=== PATIENT | female | born 1930 | race Caucasian/White ===

== ENCOUNTER 2016-10-05 16:41 | Inpatient (IN) ==
[2016-10-05] MEDS ORDERED: ACETAMINOPHEN 325 MG TABLET PO PRN (19:04)
[2016-10-05] MEDS ORDERED: ZALEPLON 5 MG CAPSULE PO PRN (19:04)
[2016-10-05] MEDS ORDERED: NITROGLYCERIN SL 0.4 MG TABLET SL PRN (19:06)
--- NOTE | 2016-10-05 19:15 | Cardiology History & Physical ---
Assessment and Plan - Time spent with patient Time spent with patient: Greater than 30 minutes (Chart review film review examination and order) (1) Near syncope Status: Acute Current Visit: Yes (2) CAD (coronary artery disease) Status: Acute Current Visit: No (3) Carotid bruit Problem details: Benign per ultrasound Status: Acute Current Visit: No (4) Murmur, cardiac Status: Acute Current Visit: No (5) Essential hypertension Status: Chronic Current Visit: No History of Present Illness Chief complaint: Near syncope History of present illness: Ms. Aquino is a 86 year old female with history of palpitations and near syncope as well as coronary artery disease mitral regurgitation pulmonary hypertension. 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 She did not pass out but she told her children and they no longer letter drive insists that she go to the emergency room she was evaluated in the emergency room at [facility] she was everything was "negative" (waiting for those records to be scanned in the EHR). The patient was having multifocal PVCs that were frequent and she simply was referred here for admission. The ED physicians discussed with Dr. Fletcher. 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 Her blood pressure is elevated and she is completely asymptomatic at this time her daughter was with her. I reviewed her films and old records. Home Medications Medication Instructions Recorded Confirmed Type amLODIPine [Norvasc] 10 mg PO DAILY 02/23/15 10/05/16 History Aspirin Tab 325 mg PO DAILY #30 tablet 02/25/15 10/05/16 Rx Atorvastatin [Lipitor] 40 mg PO BEDTIME #30 tablet 02/25/15 10/05/16 Rx Clopidogrel [Plavix] 75 mg PO DAILY #30 tablet 02/25/15 10/05/16 Rx Nitroglycerin Sl Tab [Nitrostat] 0.4 mg SL Q5M PRN #1 bottle 02/25/15 10/05/16 Rx Carvedilol [Carvedilol] 6.25 mg PO BID 10/05/16 10/05/16 History Allergies Allergy/AdvReac Type Severity Reaction Status Date / Time No Known Allergies Allergy Unverified 02/23/15 13:16 - Constitutional Constitutional: Absent: anorexia, chills, night sweats, stops breathing during sleep - EENT Eyes: Absent: blurry vision, diplopia Ears: Absent: decreased hearing Nose, mouth and throat: Absent: dysphagia, epistaxis, lip swelling - Cardiovascular Cardiovascular: Present: dyspnea. Absent: chest pain at rest, claudication, diaphoresis, dyspnea on exertion, edema - Respiratory Respiratory: Present: dyspnea, dyspnea on exertion - Gastrointestinal Gastrointestinal: Present: abdominal pain. Absent: constipation - Genitourinary Genitourinary: Absent: flank pain - Musculoskeletal Musculoskeletal: Present: arthralgias. Absent: joint swelling - Neurological Neurological: Absent: abnormal gait - Psychiatric Psychiatric: Absent: anxiety, depression - Endocrine Endocrine: Absent: cold intolerance, heat intolerance - Hematologic/Lymphatic Hematologic/Lymphatic: Absent: easy bleeding, easy bruising Medical,Surgical,& Family Hx - Medical History Cardio: History of: Cardiac Dysrhythmia, CAD (BMS is RCA andLCx 02/23/15), Hypertension, NM, Valvular Heart Disease Rheumatology: History of;: Rheumatoid Arthritis Respiratory: History of: Respiratory Problems (Pulmonary hypertension) Musculoskeletal: No history of: Amputation - Surgical History Cardiac Surgeries: Patient Denies: Cardiac Catheterization Thoracic Surgeries: Patient denies;: Lobectomy HEENT Surgeries: Surgical HX of: Tonsilectomy & Adenoidectomy - Family History Family History: Reports;: Family Cancer (MOTHER-BREAST CA SISTER-LUEKIMIA), Family Diabetes (SISTER), Family Heart Disease (MOTHER, SISTERS), Family Hypertension (SISTER) - Social History Smoking Status: Never smoker Frequency of Alcohol Use: None Type of Drug Use: None Marital Status: Lives With:: Alone Functional capacity: independent ambulation Cardiology Physical Exam - Constitutional Vitals: Vital Signs Temp Pulse Resp BP Pulse Ox 99.1 F 72 18 171/112 100 10/05/16 18:13 10/05/16 18:13 10/05/16 18:13 10/05/16 18:13 10/05/16 18:13 Intake and Output 10/05/16 10/05/16 10/05/16 07:59 15:59 23:59 Other: Weight 65 kg Patient Weight 10/05/16 23:59 Weight 65 kg General appearance: under weight - Head Head exam: Present: normal inspection - Eye Eye exam: Present: EOMI Pupils: Present: JACOBY - ENT ENT exam: Present: normal exam - Neck Neck exam: Present: normal inspection - Respiratory Respiratory exam: Present: clear to auscultation bilaterally - Cardiovascular Cardiovascular exam: Present: regular rate and rhythm (Murmur of tricuspid regurgitation and mitral regurgitation also soft murmur of aortic sclerosis with a preserved second heart) - GI/Abdominal GI/Abdominal exam: Present: normal bowel sounds - Extremities Exam Extremities exam: Present: normal inspection - Back Exam Back exam: Present: normal inspection - Neurological Exam Neurological exam: Present: alert, oriented X3 - Psychiatric Psychiatric exam: Present: normal affect, normal mood - Skin Skin exam: Present: normal color, warm
[2016-10-05] MEDS: hydrALAZINE 20 MG/1 ML VIAL IV PRN (19:58)
[2016-10-05] MEDS: SODIUM CHLORIDE 0.9% 1,000 ML IV SCH (20:03)
[2016-10-05] MEDS: ATORVASTATIN 40 MG TABLET PO SCH (20:06)
[2016-10-05 20:50] LABS: Albumin 3.8 G/DL (3.4-5.0); Bilirubin,Direct 0.2 MG/DL (0.0-0.20); Bilirubin,Indirect 0.3 MG/DL (0.0-1.0); Bilirubin,Total 0.5 MG/DL (0.2-1.0); Total Protein 6.7 G/DL (6.4-8.3)
[2016-10-05] MEDS ORDERED: CARVEDILOL 6.25 MG TABLET PO SCH (21:00)
[2016-10-06] MEDS: hydrALAZINE 20 MG/1 ML VIAL IV PRN (02:27)
[2016-10-06] MEDS ORDERED: ATROPINE 1 MG/10 ML SYRINGE IV ONE (02:48)
[2016-10-06 02:49] LABS: Basophils # 0.1 10*3/uL (0.0-0.2); Basophils % 0.7 % (0.0-0.8); Eosinophils # 0.4 10*3/uL (0.0-0.87); Eosinophils % 2.3 % (0.00-10.9); Hematocrit 50.2 VOL% (35.7-47.0); Hemoglobin 16.4 GM/DL (12.0-16.0); Immature Granulocytes % 0.5 %; Lymphocytes # 3.3 10*3/uL (1.4-4.0); Lymphocytes % 17.2 % (21.3-54.2); Mean Corpuscular HGB Conc 32.7 GM/DL (32-36); Mean Corpuscular Hemoglobin 31 PG (27-34); Mean Corpuscular Volume 95.6 FL (87-102); Mean Platelet Volume 11.4 FL (9.6-12.0); Monocytes # 0.6 10*3/uL (0.11-0.8); Monocytes % 3.2 % (1.7-12.7); Neutrophils # 14.6 10*3/uL (1.4-7.4); Neutrophils % 76.1 % (38.7-73.9); Platelet Count 380 T/CUMM (130-400); Red Blood Count 5.25 MC/CUMM (3.8-5.5); Red Cell Distribution Width 14.4 % (9.3-17.3); White Blood Count 19.1 T/CUMM (4-12)
--- NOTE | 2016-10-06 03:17 | Event Note ---
I saw the patient in the early evening hours as documented in my H and P. I was notified at 2:44 that the nursing staff "called an FELLER OPERATOR" because of bradycardia. I was notified after the FELLER OPERATOR had responded. The patient had complained of nausea and had elevated blood pressure. The prn order for hydralazine was administered and shortly thereafter she had HR into the low 40s sustained an the FELLER OPERATOR was called. I requested an ECG at that time and it has not yet been made available for me to read. I gave a verbal order to give her atropine. She has now been moved to the CCU and they are "about to scan the ECG now." The ECG that ordered last evening is still not available to read nor are the records that I tried to review from [facility] from last evening. I asked to see them when I saw the patient and I was told that they were not available because they were being scanned into the computer. They are not available in the usual location at this time. I reviewed the labs that have been done and her troponin levels are not elevated. Her WBC cell count is elevated. I will check for UTI and abdominal organ labs. She has previously had occult UTIs. I will emperically give her antibiotics. The nursing staff reports that she did not receive the atopine that I ordered because her HR came up into the 60s and her symptoms resolved with a normal blood pressure. I am awaiting the information that I need to make further decisions about her care.
[2016-10-06 03:29] LABS: Calcium 8.8 MG/DL (8.5-10.1); Osmolality,Calculated 284.8 MOS/KG (273-304); Potassium 3.7 MMOL/L (3.5-5.1); Risk Ratio 2.03
[2016-10-06] MEDS: LEVOFLOXACIN INJ 250 MG in PREMIX 1 EACH IV SCH (03:29)
[2016-10-06] MEDS: ONDANSETRON 4 MG/2 ML VIAL IV PRN (03:56)
[2016-10-06 04:37] LABS: Apearance,Urine CLEAR (Clear); Bilirubin,Urine Negative (Negative); Blood, Urine Negative (Negative); Glucose,Urine (UA) Negative (Negative); Ketones,Urine Negative (Negative); Mucus,Urine Occasional /LPF (Occasional); Nitrite,Urine Negative (Negative); Protein,Urine Negative; RBC,Urine 1 /HPF (0-4); Urine Color Yellow (Yellow); Urine Specific Gravity 1.006 (1.001-1.035); Urine Urobilinogen < 2.0 EU/DL (0.2-1.0); WBC,Urine 1 /HPF (0-6)
--- NOTE | 2016-10-06 06:23 | Cardiology Progress Note ---
Assessment and Plan (1) Near syncope Status: Acute Assessment and plan: This clearly appears to be associated with a vagal type episode with nausea and bradycardia. It may be from coronary ischemia or may be from abdominal pathology. Please see the HPI we will get an abdominal ultrasound this morning hold the patient n.p.o. the abdominal ultrasound is negative consider proceeding with left heart catheterization selective coronary angiography possible percutaneous coronary mention. Would also consider proceeding with a sooner if she becomes unstable. I will hold her beta-hemal for now. Her heart rate and blood pressure are significantly labile. Just before she has the spell she gets hypertensive nauseated and bradycardic. Again she denies pain Current Visit: Yes (2) CAD (coronary artery disease) Status: Chronic Current Visit: No Qualifiers: Coronary Disease-Associated Artery/Lesion type: sioux artery [place] vs. transplanted heart: sioux heart Associated angina: without angina Qualified Code(s): I25.10 - Atherosclerotic heart disease of sioux coronary artery without angina pectoris (3) Carotid bruit Status: Chronic Current Visit: No Qualifiers: Laterality: bilateral Qualified Code(s): R09.89 - Other specified symptoms and signs involving the circulatory and respiratory systems (4) Murmur, cardiac Status: Chronic Current Visit: No (5) Essential hypertension Status: Chronic Current Visit: No (6) Leukocytosis Status: Acute Current Visit: Yes Cardiology - PN: Subj Interval history: Ms. Aquino continues to have bouts of nausea associated with bradycardia. She has now had 3 sets of cardiac biomarkers which are negative. She has leukocytosis that has gone from 17-19,000 since yesterday at [facility]. Those records have now shown up in the chart. She is currently resting comfortably without nausea. Her abdominal exam remains very normal she does not have any discomfort in her abdomen. When I palpate her right upper quadrant she states one specifically I asked her if this her she says it does not hurt but it is uncomfortable. Her EKG demonstrates her stable left bundle branch block. She has not had any chest pain she has not had any abdominal pain. She also states that she did not have any chest pain previously with her myocardial infarction. I have again reviewed her left heart catheterization from [address] Bob got excellent results in the RCA and left circumflex with bare-metal stents she had residual disease also in the LAD at that time. I discussed with her daughter Brisa via the phone about the possibility of left heart catheterization she wants to make sure that her mom understands ramifications and the risk of this she would like to workup the GI tract first because is "less invasive." I do think it is reasonable to get an abdominal ultrasound for proceeding with left heart catheterization she appears to be stable at this time. She does not have any abdominal pain she denied any chest pain. This is very concerning for ischemia. Although her white count is 19,000 it is primarily neutrophils which may be demargination. I do not have any band forms. She has not had fever. I am concerned this may represent stuttering ischemia. I will continue her aspirin and clopidogrel for now. She is on prophylactic doses of Lovenox. Exam (Progress Note) - Constitutional Vitals: Period Temp Pulse Resp BP Sys/Proctor Pulse Ox Last 24 Hr 97.6 F-99.1 F 57-139 16-24 115-223/48-112 92-100 General appearance: normal weight - Head Head exam: Present: normal inspection - Eye Eye exam: Present: EOMI Pupils: Present: JACOBY - Respiratory Respiratory exam: Present: clear to auscultation bilaterally - Cardiovascular Cardiovascular exam: Present: regular rate and rhythm (Paradoxically split second heart sound) - GI/Abdominal GI/Abdominal exam: Present: normal bowel sounds. Absent: ascites, distended, guarding, Webber's sign, organomegaly, psoas sign, tenderness, rebound - Extremities Exam Extremities exam: Present: normal inspection - Back Exam Back exam: Present: normal inspection - Neurological Exam Neurological exam: Present: alert, oriented X3 - Psychiatric Psychiatric exam: Present: normal affect, normal mood - Skin Skin exam: Present: normal color, warm, dry Result/EKG - Labs CBC & BMP: 10/06/16 02:43 10/06/16 02:43 Labs: Laboratory Results - last 24 hr 10/05/16 10/05/16 10/05/16 19:56 19:56 22:11 WBC RBC Hgb Hct MCV MCH MCHC RDW Plt Count MPV Neut % (Auto) Lymph % (Auto) [place] % (Auto) Eos % (Auto) Baso % (Auto) Neut # (Auto) Lymph # (Auto) [place] # (Auto) Eos # (Auto) Baso # (Auto) Immature Gran % Nucleated RBC % Immature Gran # Nucleated RBCs # Sodium Potassium Chloride Carbon Dioxide Anion Gap BUN Creatinine GFR Calculation BUN/Creatinine Ratio Glucose POC Glucose Calculated Osmolality Calcium Total Bilirubin 0.50 Direct Bilirubin 0.2 Indirect Bilirubin 0.3 AST 28 ALT 27 Alkaline Phosphatase 85 Troponin I 0.023 0.025 Total Protein 6.7 Albumin 3.8 Triglycerides Cholesterol LDL Cholesterol VLDL Cholesterol HDL Cholesterol Heart Disease Risk Ratio Amylase Lipase Urine Color Urine Appearance Urine pH Ur Specific [place] Urine Protein Urine Glucose (UA) Urine Ketones Urine Blood Urine Nitrate Urine Bilirubin Urine Urobilinogen Urine Leukocytes Urine RBC Urine WBC Urine Mucus Ur Culture Indicated? 10/06/16 10/06/16 10/06/16 00:00 02:42 02:43 WBC RBC Hgb Hct MCV MCH MCHC RDW Plt Count MPV Neut % (Auto) Lymph % (Auto) [place] % (Auto) Eos % (Auto) Baso % (Auto) Neut # (Auto) Lymph # (Auto) [place] # (Auto) Eos # (Auto) Baso # (Auto) Immature Gran % Nucleated RBC % Immature Gran # Nucleated RBCs # Sodium Potassium Chloride Carbon Dioxide Anion Gap BUN Creatinine GFR Calculation BUN/Creatinine Ratio Glucose POC Glucose 86 Calculated Osmolality Calcium Total Bilirubin Direct Bilirubin Indirect Bilirubin AST ALT Alkaline Phosphatase Troponin I 0.021 Total Protein Albumin Triglycerides Cholesterol LDL Cholesterol VLDL Cholesterol HDL Cholesterol Heart Disease Risk Ratio Amylase Lipase Urine Color Yellow Urine Appearance Clear Urine pH 6.0 Ur Specific [place] 1.006 Urine Protein Negative Urine Glucose (UA) Negative Urine Ketones Negative Urine Blood Negative Urine Nitrate Negative Urine Bilirubin Negative Urine Urobilinogen < 2.0 H Urine Leukocytes Negative Urine RBC 1 Urine WBC 1 Urine Mucus Occasional Ur Culture Indicated? Not indicated 10/06/16 10/06/16 10/06/16 02:43 02:43 03:00 WBC 19.1 H RBC 5.25 Hgb 16.4 H Hct 50.2 H MCV 95.6 MCH 31 MCHC 32.7 RDW 14.4 Plt Count 380 MPV 11.4 Neut % (Auto) 76.1 H Lymph % (Auto) 17.2 L [place] % (Auto) 3.2 Eos % (Auto) 2.3 Baso % (Auto) 0.7 Neut # (Auto) 14.6 H Lymph # (Auto) 3.3 [place] # (Auto) 0.6 Eos # (Auto) 0.4 Baso # (Auto) 0.1 Immature Gran % 0.5 Nucleated RBC % 0.0 Immature Gran # 0.10 Nucleated RBCs # 0.00 Sodium 144 Potassium 3.7 Chloride 108 H Carbon Dioxide 26 Anion Gap 13.7 BUN 11 Creatinine 0.50 L GFR Calculation 88 BUN/Creatinine Ratio 22.00 H Glucose 97 POC Glucose Calculated Osmolality 284.8 Calcium 8.8 Total Bilirubin Direct Bilirubin Indirect Bilirubin AST ALT Alkaline Phosphatase Troponin I Total Protein Albumin Triglycerides 110 Cholesterol 134 LDL Cholesterol 62.0 VLDL Cholesterol 22.0 HDL Cholesterol 66 H Heart Disease Risk Ratio 2.03 Amylase 16 L Lipase 128.0 Urine Color Urine Appearance Urine pH Ur Specific [place] Urine Protein Urine Glucose (UA) Urine Ketones Urine Blood Urine Nitrate Urine Bilirubin Urine Urobilinogen Urine Leukocytes Urine RBC Urine WBC Urine Mucus Ur Culture Indicated? - EKG EKG results: interpreted by me (Left bundle branch block)
--- NOTE | 2016-10-06 06:25 | EKG Report ---
Stationary ECG Study [facility] Test Date: 10/06/2016 3:00:02 AM Pat Name: RAUL SESAY Department: Room: 121 Gender: F Associate Project Manager: JOS : [id number] Requested by: Ashley Rodriguez Order Number: [id number] Virgie MD: AUGIE BARROSO Intervals [place] Rate: 72 P: 45 ME: 169 QRS: -50 QRSD: 146 T: 124 QT: 488 QTc: 512 Interpretive Statements SINUS RHYTHM MARKED LEFT AXIS DEVIATION LEFT BUNDLE BRANCH BLOCK Electronically Signed On 10-06-16 11:42:42 INDUSTRIAL HYGIENIST by AUGIE BARROSO [email or web address]
--- NOTE | 2016-10-06 07:31 | XRay Report ---
Portable chest Date: 10/06/2016 Clinical history: Shortness of breath Comparison: 02/23/2015 Technique: Portable AP sitting chest Findings: The heart is minimally enlarged with calcification in the wall of the tortuous aorta. More prominent parenchymal findings in the lungs. Left loop recorder. Deviation of the trachea to the left at the thoracic inlet with widening of the superior mediastinum. Skin folds are noted with artifactual densities. Old healed fracture of the mid left clavicle with osteopenia and degenerative changes. Impression: Mild CHF with minimal cardiomegaly. Left loop recorder. Deviation trachea to the left at the thoracic inlet which can be seen with enlargement of the right lobe of the thyroid gland. Thyroid ultrasound may be helpful for further evaluation. Osteopenia. PROCEDURE INTERPRETED AT [facility] DEPARTMENT OF RADIOLOGY Final Report Signed by: Dr. Colette Madison
--- NOTE | 2016-10-06 08:01 | Ultrasound Report ---
Exam: Carotid ultrasound Date: 10/06/2016 Comparison: 02/23/2015 Technique: Duplex scans of the carotid and vertebral arteries using B-mode/House scale imaging and Doppler spectral analysis and color flow. Reason: Syncope, carotid bruit Findings: The right ICA measures 4.8 mm in diameter and the left ICA measures 6.3 mm in diameter. Color-flow documented in the visualized arteries. The peak systolic velocities are as follows: Right CCA: 48.1 cm/s Right ICA: 84.6 cm/s Right ECA: 155.5 cm/s Left CCA: 70.2 cm/s Left ICA: 115.6 cm/s Left ECA: 106.9 cm/s The peak systolic ICA/CCA velocity ratios are as follows: 1.8 on the right and 1.6 on the left. Antegrade flow is present in both vertebral arteries. Impression:[Less than 50% stenosis in both internal carotid arteries with progressive heterogeneous plaque formation. Antegrade flow in both vertebral arteries.] The Society of Radiologists in Ultrasound consensus conference criteria was used. The Ultrasound images were captured and stored. PROCEDURE INTERPRETED AT [facility] DEPARTMENT OF RADIOLOGY Final Report Signed by: Dr. Colette Madison
--- NOTE | 2016-10-06 08:14 | Ultrasound Report ---
Exam: US abdomen Date: 10/06/2016 6:13 AM Comparison: None Indication: Nausea Technique:[Multiple transabdominal real-time scans were obtained of the abdomen. Color flow scans obtained. Ultrasound images were captured and stored.] Findings: No gallstones are identified. The wall of the gallbladder is not thickened with negative sonographic Webber sign. CBD is normal in size measuring 5 mm. The liver is normal in size with no masses. The spleen is normal in size with a splenic index of 89. Right kidney measures 102 mm in length. Left kidney measures 113 mm length with no hydronephrosis. 14 x 25 x 14 mm septated left midpole renal cyst. The visualized pancreas and aorta have an unremarkable appearance. Portions of pancreas and aortic bifurcation are obscured by bowel gas. Color flow documented in the IVC. Impression: No gallbladder pathology identified. 25 mm septated left midpole renal cyst. CT with contrast recommended for further evaluation of this complex cystic finding. The pancreas and distal aorta are obscured by bowel gas. The Ultrasound images were captured and stored. PROCEDURE INTERPRETED AT [facility] DEPARTMENT OF RADIOLOGY Final Report Signed by: Dr. Colette Madison
[2016-10-06] MEDS ORDERED: CLOPIDOGREL 75 MG TABLET PO SCH (09:00)
[2016-10-06] MEDS ORDERED: ASPIRIN 325 MG TABLET PO SCH (09:00)
[2016-10-06] MEDS ORDERED: PANTOPRAZOLE 40 MG TABLET PO SCH (09:00)
--- NOTE | 2016-10-06 12:21 | Event Note ---
I went to had a lengthy discussion with the patient and her daughter Brisa at the bedside as well as her son-in-law. We discussed the findings thus far we talked about further workup for cardiovascular disease with her known coronary disease. We discussed all risk benefits and options. Both the patient and her family wish to be conservative. They would like to have a noninvasive further risk stratification before proceeding with any invasive and potentially risky interventional procedures. We also discussed about the fact that her white count was elevated has been elevated in the past and she was referred to hematology oncology but chose not to go because of fear of malignancy. We will order a nuclear Lexiscan hopefully can be done today. The patient is n.p.o.
[2016-10-06] MEDS ORDERED: REGADENOSON 0.4 MG/5 ML SYRINGE IV ONE (12:58)
--- NOTE | 2016-10-06 13:15 | Event Note ---
Due to gait instability, Lexiscan protocol was utilized. No obvious ST changes noted. Occasional PVC noted., multifocal. Now to [address] to complete final scan. Dr. Lo to read, interpret and advise.
--- NOTE | 2016-10-06 14:00 | ECHO Report ---
Vonnie Aquino Exam Date: 10/06/2016 07:40 Referring Physician: Technologist: Laquita Hicks RDCS Age: 86 Ht (in): Wt (lb): Gender: F Exam Location: [facility] Echo Indications: Near syncope, CAD, Carotid bruit, Leukocytosis, Shortness of breath, Cardiac murmur, unspecified BP: / HR: Rhythm: Sinus Technical Quality: AVerage IMPRESSIONS Left ventricular ejection fraction is estimated at 60 %. There is grade I diastolic dysfunction. Mild left ventricular hypertrophy. Mild aortic stenosis and mild aortic insufficiency GIMLA estimated at 1.1 cm2. MEASUREMENTS (Male / Female) Normal Values 2D ECHO LV Diastolic Diameter PLAX 5.0 cm 4.2 - 5.9 / 3.9 - 5.3 cm LV Systolic Diameter PLAX 2.5 cm LV Fractional Shortening PLAX 48.5 % IVS Diastolic Thickness 1.1 cm 0.6 - 1.0 / 0.6 - 0.9 cm LVPW Diastolic Thickness 1.1 cm 0.6 - 1.0 / 0.6 - 0.9 cm RV Internal Dim ED PLAX 1.9 cm Aortic Root Diameter 2.6 cm LA Systolic Diameter LX 4.2 cm 3.0 - 4.0 / 2.7 - 3.8 cm DOPPLER TR Peak Velocity 306.0 cm/s TR Peak Gradient 37.5 mmHg FINDINGS Left Ventricle Normal left ventricular cavity size. Mild left ventricular hypertrophy. Left ventricular ejection fraction is estimated at 60 %. There is grade I diastolic dysfunction. Right Ventricle The right ventricle is normal in size and function. Right Atrium The right atrium is normal in size. Left Atrium Moderately increased left atrial size. Mitral Valve Mild mitral annular and leaflet calcification with mild mitral regurgitation. There is no demonstrable mitral stenosis Aortic Valve Moderate aortic valve calcification. Mean gradient 13 mmHg, GILMA 1.1 cm. Mild aortic valve regurgitation. Tricuspid Valve Morphologically normal tricuspid valve. Trace to mild tricuspid valve regurgitation. Tricuspid regurgitation velocities suggest a RVSP of 37 mmHg plus the right atrial pressure. Pulmonic Valve Morphologically normal pulmonic valve without significant stenosis. There is no pulmonic regurgitation. Pericardium Normal pericardium without effusion. Aorta Normal ascending aorta dimension. Barbara Lo (Electronically Signed) Final Date: 06 October 2016 13:59
--- NOTE | 2016-10-06 14:16 | Event Note ---
TTE looks good. Low risk stress test. I discussed with the patient and her family. I will ask GI to see. I d/w Dr. Tripp.
--- NOTE | 2016-10-06 14:36 | Gastrointestinal Consult Note ---
Assessment and Plan (1) Nausea Status: Acute Assessment and plan: Episodes are unclear and are not necessarily consistent with reflux or peptic cause. Certainly the possibility of biliary-related symptoms will need to be entertained and would suggest a HIDA scan with ejection fraction and how this may affect the symptoms. We will proceed with EGD but is unlikely were identified and acid peptic cause for this. Concern remains over some type of cardiac dysrhythmia possibly vagal induced related to intestinal spasm. We will need to hold Plavix if no clear cardiac reason for this to be continued. Current Visit: Yes (2) Colon cancer screening Status: Acute Assessment and plan: Patient never had her colon looked at and certainly consideration of preventive colon cancer screening is recommended. It is unlikely this would have anything to do with her near syncopal episodes without bowel change, anemia and the 6-7 year duration of the symptoms. She will consider but at this time is reluctant to discuss colonoscopy Current Visit: Yes History of Present Illness Chief complaint: recurrent nausea History of present illness: Ms. Aquino is a 86 year old female Who is admitted with recurrent episodes of vomiting with nausea that tend to happen postprandially. These episodes of abdominal now off and on for several years. She was admitted for cardiac workup which so far been unrevealing also had abdominal ultrasound that was unrevealing. She reports that generally then 15-20 minutes but often within a few hours of eating and has to go to the bathroom for severe nausea since of vomiting. She never vomits. She's had this lightheaded dizzy and feels like she is going to pass out. He did not have any dysphagia complaints she reports is been no history of any GI bleeding. She does have a cardiac history has had previous stents placed in currently has been receiving Plavix. We are asked see her for possible GI source for her symptoms. She denies any change in bowel movements never had a colonoscopy done. Cardiac workup so far has been unrevealing. Home Medications Medication Instructions Recorded Confirmed Type amLODIPine [Norvasc] 10 mg PO DAILY 02/23/15 10/05/16 History Aspirin Tab 325 mg PO DAILY #30 tablet 02/25/15 10/05/16 Rx Atorvastatin [Lipitor] 40 mg PO BEDTIME #30 tablet 02/25/15 10/05/16 Rx Clopidogrel [Plavix] 75 mg PO DAILY #30 tablet 02/25/15 10/05/16 Rx Nitroglycerin Sl Tab [Nitrostat] 0.4 mg SL Q5M PRN #1 bottle 02/25/15 10/05/16 Rx Carvedilol [Carvedilol] 6.25 mg PO BID 10/05/16 10/05/16 History Allergies Allergy/AdvReac Type Severity Reaction Status Date / Time No Known Allergies Allergy Unverified 02/23/15 13:16 Medical,Surgical,& Family Hx - Medical History Cardio: History of: Cardiac Dysrhythmia, CAD (BMS is RCA andLCx 02/23/15), Hypertension, [place], Valvular Heart Disease Rheumatology: History of;: Rheumatoid Arthritis Respiratory: History of: Respiratory Problems (Pulmonary hypertension) Musculoskeletal: No history of: Amputation - Surgical History Cardiac Surgeries: Patient Denies: Cardiac Catheterization Thoracic Surgeries: Patient denies;: Lobectomy HEENT Surgeries: Surgical HX of: Tonsilectomy & Adenoidectomy - Family History Family History: Reports;: Family Cancer (MOTHER-BREAST CA SISTER-LUEKIMIA), Family Diabetes (SISTER), Family Heart Disease (MOTHER, SISTERS), Family Hypertension (SISTER) - Social History Smoking Status: Never smoker Frequency of Alcohol Use: None Type of Drug Use: None - Constitutional Constitutional: Present: weight loss. Absent: anorexia, chills, fatigue, fever( s) - EENT Eyes: Absent: blurry vision, diplopia Ears: Absent: ear pain Nose, mouth and throat: Absent: dysphagia, epistaxis, headache(s) - Cardiovascular Cardiovascular: Absent: chest pain at rest, chest pain with activity, edema - Respiratory Respiratory: Absent: cough, dyspnea on exertion - Gastrointestinal Gastrointestinal: Present: bloating, nausea. Absent: abdominal pain, change in bowel habits, coffee ground emesis, melena, vomiting - Genitourinary Genitourinary: Absent: flank pain, hematuria - Musculoskeletal Musculoskeletal: Absent: arthralgias - Neurological Neurological: Absent: confusion - Endocrine Endocrine: Absent: fatigue, polydipsia, polyphagia - Hematologic/Lymphatic Hematologic/Lymphatic: Absent: easy bleeding, lymphadenopathy Exam - Constitutional Vitals: Period Temp Pulse Resp BP Sys/Proctor Pulse Ox Last 24 Hr 96.8 F-99.1 F 57-139 15-24 115-223/48-112 92-100 General appearance: normal weight, no acute distress - Head Head exam: Present: normal inspection, normocephalic, atraumatic - Eye Eye exam: Present: EOMI. Absent: conjunctival injection, scleral icterus Pupils: Present: JACOBY. Absent: dilated - ENT ENT exam: Present: normal oropharynx - Neck Neck exam: Present: normal inspection. Absent: lymphadenopathy, thyromegaly - Respiratory Respiratory exam: Present: clear to auscultation bilaterally. Absent: accessory muscle use, rales - Cardiovascular Cardiovascular exam: Present: regular rate and rhythm. Absent: systolic murmur - GI/Abdominal GI/Abdominal exam: Present: normal bowel sounds, soft. Absent: ascites, distended, rebound - Extremities Exam Extremities exam: Absent: edema - Neurological Exam Neurological exam: Present: oriented X3 Results - Labs CBC & BMP: 10/06/16 02:43 10/06/16 02:43 Lab Results: I have reviewed the past 24 hour labs
[2016-10-06] MEDS: METOPROLOL TARTRATE 5 MG/5 ML VIAL IV SCH ×3 (15:07→21:03)
--- NOTE | 2016-10-06 15:18 | Nuclear Medicine Report ---
PROCEDURE: Nuclear Lexiscan stress test BRIEF HISTORY: This is an 86-year-old female with previous percutaneous coronary intervention of th e left anterior descending artery and the right coronary artery who presents with hypotension and br adycardia symptomatically associated with nausea. She was ruled out for a myocardial infarction. T he patient underwent Lexiscan administration because of an inability to ambulate on the treadmill. She was given appropriate rest and stress doses of Technetium 99. Ms. Beverley ShahidNAWAF was prese nt for Lexiscan administration. The patient has an underlying left bundle branch block. This did n ot change significantly with Lexiscan administration. Resting heart rate was 82 beats per minute wi th a blood pressure of 162/78. This did not change during her Lexiscan administration. She had no symptoms. Raw data, and multidimensional analysis, multiplanar SPECT images with both rest and stress images w ere reviewed. Computer generated quantitative analysis and computer generated ventriculography were assessed. Raw data demonstrates loss of GI uptake particularly in the stress images compared to the rest image s. Computer generated ventriculography demonstrates an ejection fraction estimated to be 50% with e nd-diastolic volume of 138 cc and end-systolic volume of 69 cc. Computer generated quantitative emily lysis demonstrates a summed stress score estimated at 2, summed risk score of 0, and summed differen ce score of 2. Multiplanar SPECT images demonstrate a very mild anterior apical photopenia with the rest images that appears to improve slightly with the post-Lexiscan images. This may be related to her bundle branch block but certainly does not get worse with Lexiscan administration. IMPRESSIONS: THIS IS A LOW RISK PHARMACOLOGIC LEXISCAN NUCLEAR STRESS TEST. THERE IS NO CLEAR EVID ENCE OF REVERSIBLE ISCHEMIA. EJECTION FRACTION IS AT THE LOWER LIMITS OF NORMAL. Procedure performed and interpreted at [facility] Department of Radiology.
[2016-10-06] MEDS: ASPIRIN EC 81 MG TABLET PO SCH (16:40)
[2016-10-06] MEDS: amLODIPine 10 MG TABLET PO SCH (16:40)
[2016-10-06] MEDS: DOCUSATE SODIUM 100 MG CAPSULE PO PRN (16:40)
[2016-10-06] MEDS: PANTOPRAZOLE 40 MG TABLET PO SCH ×2 (16:40→22:01)
[2016-10-06] MEDS: ENOXAPARIN 30 MG/0.3 ML SYRINGE SUBCUT SCH (16:41)
[2016-10-06] MEDS ORDERED: CARVEDILOL 3.125 MG TABLET PO SCH (21:00)
[2016-10-06] MEDS: ATORVASTATIN 40 MG TABLET PO SCH (22:01)
[2016-10-07] MEDS: METOPROLOL TARTRATE 5 MG/5 ML VIAL IV SCH (00:44)
[2016-10-07] MEDS: SODIUM CHLORIDE 0.9% 1,000 ML IV SCH ×2 (03:04→23:17)
[2016-10-07] MEDS: LEVOFLOXACIN INJ 250 MG in PREMIX 1 EACH IV SCH (04:24)
--- NOTE | 2016-10-07 07:01 | Cardiology Progress Note ---
Assessment and Plan (1) Near syncope Status: Acute Assessment and plan: This clearly appears to be associated with a vagal type episode with nausea and bradycardia. She has a low risk nuclear stress test and echocardiogram. GI is looking for GI etiologies of her nausea. She has a normal abdominal ultrasound HIDA scan is scheduled for Sunday separate from her technetium 99 scan that she had yesterday. We will continue to observe. Will increase her beta blockers. The bradycardia appears to be highly episodic and related to nausea. Current Visit: Yes (2) CAD (coronary artery disease) Status: Chronic Assessment and plan: Low risk stress test. Current Visit: No Qualifiers: Coronary Disease-Associated Artery/Lesion type: [place] artery [place] vs. transplanted heart: [place] heart Associated angina: without angina Qualified Code(s): I25.10 - Atherosclerotic heart disease of [place] coronary artery without angina pectoris (3) Carotid bruit Status: Chronic Current Visit: No Qualifiers: Laterality: bilateral Qualified Code(s): R09.89 - Other specified symptoms and signs involving the circulatory and respiratory systems (4) Murmur, cardiac Status: Chronic Assessment and plan: No high-grade valvular disease Current Visit: No (5) Essential hypertension Status: Chronic Current Visit: No (6) Leukocytosis Status: Acute Assessment and plan: Patient does not appear to be infected she has not had a fever. When discussing with the daughter Brisa appears though that this is been present before and it was suggested that she see hematology oncology as an outpatient with the patient has purposely not done this because of concerns for malignancy. Current Visit: Yes Cardiology - PN: Subj Interval history: The patient has no new complaints this morning and she is requesting discharge again. I reminded her that we need to complete her workup before discharge. The assistance of Dr. Tripp is appreciated reviewed his note noted to the HIDA scan for tomorrow. The patient can come off of her Plavix. It has been greater than 1 year since she had bare-metal stents placed. There is some risk of stent thrombosis however in the setting current setting its probably best that we hold it. I would like to move to the floor however she continues to have tachycardia and the patient was moved here because of the floor was unable to handle bradycardia dysrhythmia. An [employer] was called when the patient became bradycardic. Will hold here for now. Exam (Progress Note) - Constitutional Vitals: Period Temp Pulse Resp BP Sys/Proctor Pulse Ox Last 24 Hr 96.8 F-98.6 F 60-139 15-27 140-171/59-100 95-100 General appearance: normal weight - Head Head exam: Present: normal inspection - Eye Eye exam: Present: EOMI Pupils: Present: JACOBY - Respiratory Respiratory exam: Present: clear to auscultation bilaterally - Cardiovascular Cardiovascular exam: Present: regular rate and rhythm (Murmurs without change) - GI/Abdominal GI/Abdominal exam: Present: normal bowel sounds - Neurological Exam Neurological exam: Present: alert, oriented X3 - Psychiatric Psychiatric exam: Present: normal affect, normal mood - Skin Skin exam: Present: normal color Result/EKG - Labs CBC & BMP: 10/06/16 02:43 10/06/16 02:43
--- NOTE | 2016-10-07 08:21 | Gastrointestinal Progress Note ---
Assessment and Plan - Time spent with patient Time spent with patient: Greater than 30 minutes (1) Nausea Status: Acute Current Visit: Yes (2) Colon cancer screening Status: Acute Current Visit: Yes (3) Other specified counseling Status: Acute Current Visit: Yes Exam (Progress Note) - Constitutional Vitals: Period Temp Pulse Resp BP Sys/Proctor Pulse Ox Last 24 Hr 97.0 F-98.6 F 60-139 15-27 140-171/59-100 93-100 Results - Labs CBC & BMP: 10/06/16 02:43 10/06/16 02:43 Note Addendum: PLEASE NOTE -- automatic citation of patient information is unavoidable in this electronic note. I have made a reasonable effort to review the information cited , but it is not a part of my evaluation, impression, or recommendation unless specifically discussed in the dictated text that follows. As well, voice recognition software was used in the creation of this clinical note. Reasonable effort was made to identify and correct gross errors. Despite proofreading, errors in production machine computer operator may be present, including nonsense verbiage at times. If you encounter such an error, please contact me at for discussion and correction. -- Feliciano Chief complaint: nausea Subjective: the patient is an 86-year-old female seen for follow-up of nausea. She is admitted to the intensive care unit under the care of Dr. Saeed with a primary diagnosis of near syncope. She has undergone cardiac evaluation without evidence of acute coronary syndrome or other change in her underlying coronary artery disease. She is scheduled for a HIDA scan on Sunday. She reports feeling pretty good this morning and was able to tolerate breakfast. She is not having any nausea at present. Medications: Tylenol, Norvasc, aspirin, Lipitor, Coreg, Colace, Lovenox, levofloxacin, Lopressor, nitroglycerin, Zofran, Protonix, Sonata, normal saline infusion Review of Symptoms: 12 point review of symptoms was negative except as noted above Physical examination: Vital Signs: Current vital signs reviewed. General Appearance: well-appearing. Not acutely ill. Head: Normocephalic. Eyes: no scleral icterus. No scleral injection. No conjunctival pallor. Oral Cavity: Odor of breath was normal. No drooling was observed. Lips showed no abnormalities. Lungs: Respiration rhythm and depth was normal. Cardiovascular: Heart rate and rhythm were normal. Abdomen: abdomen was not distended. Abdominal auscultation revealed no abnormalities. Ascites was not discovered. Abdominal palpation revealed no tenderness and no hepatosplenomegaly. Musculoskeletal System: musculoskeletal system was grossly normal. Neurological: level of consciousness was normal. Speech was normal. No coordination/cerebellum abnormalities were noted. Skin: Gen. appearance was normal. Color and pigmentation were normal. No skin lesions were appreciated. Laboratory: no new labs today Radiology: reviewed with no pertinent changes noted. Impressions: 1. Nausea -- patient reports some clinical improvement today. She is not having any nausea at present. I recommend continued advancement of diet as tolerated. I agree with HIDA scan as scheduled tomorrow. We will follow up with endoscopic evaluation as indicated. 2. Patient Counseling: Medical Management: Patient seen for greater than 30 minutes. Greater than 50% of this time was spent counseling regarding differential diagnosis, likely diagnosis,, diagnostic and therapeutic options, risks, benefits, and alternatives to procedures and medications, informed consent, and plan of care generally. Patient has expressed understanding and wishes to proceed. Recommendations: -- continue current diet, advance as tolerated -- continue supportive care otherwise -- HIDA scan as scheduled -- we will follow up with further recommendations pending the results of that examination -- we will continue to follow with you
[2016-10-07] MEDS: amLODIPine 10 MG TABLET PO SCH (09:14)
[2016-10-07] MEDS: ASPIRIN EC 81 MG TABLET PO SCH (09:14)
[2016-10-07] MEDS: CARVEDILOL 6.25 MG TABLET PO SCH ×2 (09:14→20:10)
[2016-10-07] MEDS: ENOXAPARIN 30 MG/0.3 ML SYRINGE SUBCUT SCH (09:15)
[2016-10-07] MEDS: PANTOPRAZOLE 40 MG TABLET PO SCH ×2 (09:15→20:10)
[2016-10-07] MEDS: ATORVASTATIN 40 MG TABLET PO SCH (20:10)
[2016-10-07] MEDS ORDERED: METOPROLOL TARTRATE 5 MG/5 ML VIAL IV ONE (21:51)
[2016-10-07] MEDS: METOPROLOL TARTRATE 5 MG/5 ML VIAL IV PRN ×3 (21:56→22:53)
[2016-10-07] MEDS: DILTIAZEM INJ 100 MG in SODIUM CHLORIDE 0.9% 100 ML IV SCH (23:17)
[2016-10-08] MEDS: LEVOFLOXACIN INJ 250 MG in PREMIX 1 EACH IV SCH (03:38)
--- NOTE | 2016-10-08 07:59 | Gastrointestinal Progress Note ---
Assessment and Plan (1) Nausea Status: Acute Current Visit: Yes (2) Colon cancer screening Status: Acute Current Visit: Yes (3) Other specified counseling Status: Acute Current Visit: Yes Exam (Progress Note) - Constitutional Vitals: Period Temp Pulse Resp BP Sys/Proctor Pulse Ox Last 24 Hr 97.8 F-99.5 F 60-138 13-26 142-183/53-97 91-97 Results - Labs CBC & BMP: 10/06/16 02:43 10/06/16 02:43 Note Addendum: PLEASE NOTE -- automatic citation of patient information is unavoidable in this electronic note. I have made a reasonable effort to review the information cited , but it is not a part of my evaluation, impression, or recommendation unless specifically discussed in the dictated text that follows. As well, voice recognition software was used in the creation of this clinical note. Reasonable effort was made to identify and correct gross errors. Despite proofreading, errors in piped buttonhole machine operator may be present, including nonsense verbiage at times. If you encounter such an error, please contact me at for discussion and correction. -- Feliciano Chief complaint: nausea Subjective: the patient is an 86-year-old female seen for follow-up of nausea. She reports feeling good this morning but had a difficult night last night with an episode of arrhythmia. She is not having any nausea at present. She has gone for HIDA scan this morning with read pending. Medications: Tylenol, Norvasc, aspirin, Lipitor, Coreg, Colace, Lovenox, levofloxacin, Lopressor, nitroglycerin, Zofran, Protonix, Sonata, normal saline infusion Review of Symptoms: 12 point review of symptoms was negative except as noted above Physical examination: Vital Signs: Current vital signs reviewed. General Appearance: well-appearing. Not acutely ill. Head: Normocephalic. Eyes: no scleral icterus. No scleral injection. No conjunctival pallor. Oral Cavity: Odor of breath was normal. No drooling was observed. Lips showed no abnormalities. Lungs: Respiration rhythm and depth was normal. Cardiovascular: Heart rate and rhythm were normal. Abdomen: abdomen was not distended. Abdominal auscultation revealed no abnormalities. Ascites was not discovered. Abdominal palpation revealed no tenderness and no hepatosplenomegaly. Musculoskeletal System: musculoskeletal system was grossly normal. Neurological: level of consciousness was normal. Speech was normal. No coordination/cerebellum abnormalities were noted. Skin: Gen. appearance was normal. Color and pigmentation were normal. No skin lesions were appreciated. Laboratory: no new labs today Radiology: HIDA scan pending Impressions: 1. Nausea -- patient reports clinical improvement. She is not having any nausea at present. She has had a HIDA scan accomplished with read pending. We will follow up with further recommendations once those results are available. 2. Patient Counseling: Medical Management: Patient seen for greater than 30 minutes. Greater than 50% of this time was spent counseling regarding differential diagnosis, likely diagnosis,, diagnostic and therapeutic options, risks, benefits, and alternatives to procedures and medications, informed consent, and plan of care generally. Patient has expressed understanding and wishes to proceed. Recommendations: -- continue current diet, advance as tolerated -- continue supportive care otherwise -- HIDA scan read pending -- we will follow up with further recommendations pending the results of that examination -- we will continue to follow with you Dr. Tripp will resume G.I. care for this patient tomorrow
--- NOTE | 2016-10-08 09:52 | Nuclear Medicine Report ---
Nuclear medicine hepatobiliary scan Indication: Abdominal pain Findings: The patient was injected with 5.0 mCi of 90 9M technetium Choletec intravenously. There is prompt hepatic uptake and excretion into the biliary system. Gallbladder fills normally. The patient was given 1.3 mcg of sincalide intravenously. Gallbladder ejection fraction is estimated at 12 %. Impression: Normal hepatobiliary uptake, excludes acute cholecystitis. Decreased gallbladder ejection fraction, can be seen from multiple causes of cholestasis. PROCEDURE INTERPRETED AT [facility] DEPARTMENT OF RADIOLOGY Final Report Signed by: Dr. Mathew Escamilla
[2016-10-08] MEDS: DOCUSATE SODIUM 100 MG CAPSULE PO PRN (09:57)
[2016-10-08] MEDS: amLODIPine 10 MG TABLET PO SCH (09:58)
[2016-10-08] MEDS: ONDANSETRON 4 MG/2 ML VIAL IV PRN (09:58)
[2016-10-08] MEDS: PANTOPRAZOLE 40 MG TABLET PO SCH ×2 (09:58→21:24)
[2016-10-08] MEDS: ENOXAPARIN 30 MG/0.3 ML SYRINGE SUBCUT SCH (09:58)
[2016-10-08] MEDS: ASPIRIN EC 81 MG TABLET PO SCH (09:58)
[2016-10-08] MEDS: CARVEDILOL 6.25 MG TABLET PO SCH ×2 (09:58→21:24)
--- NOTE | 2016-10-08 10:43 | Cardiology Progress Note ---
Assessment and Plan - Time spent with patient Time spent with patient: Greater than 30 minutes (Education discussion with the patient chart review radiology review and documentation) (1) Near syncope Status: Acute Assessment and plan: This clearly appears to be associated with a vagal type episode with nausea and bradycardia. She has a low risk nuclear stress test and echocardiogram. GI is looking for GI etiologies of her nausea. She has a normal abdominal ultrasound HIDA scan is scheduled for Sunday separate from her technetium 99 scan that she had yesterday. We will continue to observe. Will increase her beta blockers. The bradycardia appears to be highly episodic and related to nausea. Current Visit: Yes (2) CAD (coronary artery disease) Status: Chronic Assessment and plan: Low risk stress test. Current Visit: No Qualifiers: Coronary Disease-Associated Artery/Lesion type: [place] artery [place] vs. transplanted heart: [place] heart Associated angina: without angina Qualified Code(s): I25.10 - Atherosclerotic heart disease of [place] coronary artery without angina pectoris (3) Carotid bruit Status: Chronic Current Visit: No Qualifiers: Laterality: bilateral Qualified Code(s): R09.89 - Other specified symptoms and signs involving the circulatory and respiratory systems (4) Murmur, cardiac Status: Chronic Assessment and plan: No high-grade valvular disease Current Visit: No (5) Essential hypertension Status: Chronic Current Visit: No (6) Leukocytosis Status: Acute Assessment and plan: Patient does not appear to be infected she has not had a fever. I do not know if this is playing a role in her cholestasis. She does not appear to have cholecystitis by HIDA scan Current Visit: Yes (7) Cholestasis Status: Acute Assessment and plan: The patient had a symptomatic HIDA scan with gallbladder ejection fraction of 12 % and reproducible nausea. I do not know if this is contributing to the etiology of her spells but await input from GI. Current Visit: Yes Cardiology - PN: Subj Interval history: Ms. Aquino states that she has nausea today when she was getting her HIDA scan. She states that was not quite as intense as her other episodes but it was present. Her HIDA scan was significant for a depressed ejection fraction of 12% . Defer to GI medicine about recommendations. She had another episode last night of supraventricular tachycardia. Right was about 150 BPM responded to IV beta blockers. This is occurred the last 2 evenings. It looks regular no suspicious for atrial flutter. She has a left bundle branch block and of course it is a wide complex. Will add low-dose calcium channel hemal. The issue is that she has a resting heart rate in the 60s and had bradycardia prior to these episodes. She may potentially require pacing in the future. We need to interrogate her link device to see if we can assess and better understand her tachydysrhythmia. Exam (Progress Note) - Constitutional Vitals: Period Temp Pulse Resp BP Sys/Proctor Pulse Ox Last 24 Hr 97.8 F-99.5 F 60-138 13-26 142-183/53-97 91-97 General appearance: normal weight - Eye Eye exam: Present: EOMI Pupils: Present: JACOBY - Respiratory Respiratory exam: Present: clear to auscultation bilaterally - Cardiovascular Cardiovascular exam: Present: regular rate and rhythm (She has murmur of aortic sclerosis and mitral regurgitation and tricuspid regurgitation) - GI/Abdominal GI/Abdominal exam: Present: normal bowel sounds - Extremities Exam Extremities exam: Present: normal inspection - Back Exam Back exam: Present: normal inspection - Neurological Exam Neurological exam: Present: alert, oriented X3 - Psychiatric Psychiatric exam: Present: normal affect, normal mood - Skin Skin exam: Present: normal color, warm, dry Result/EKG - Labs CBC & BMP: 10/06/16 02:43 10/06/16 02:43
[2016-10-08] MEDS ORDERED: DILTIAZEM CD 120 MG CAPSULE PO SCH (11:00)
[2016-10-08] MEDS: ATORVASTATIN 40 MG TABLET PO SCH (21:24)
[2016-10-08] MEDS: DILTIAZEM INJ 100 MG in SODIUM CHLORIDE 0.9% 100 ML IV SCH (21:47)
[2016-10-08] MEDS: SODIUM CHLORIDE 0.9% 1,000 ML IV SCH (23:58)
[2016-10-09] MEDS: LEVOFLOXACIN INJ 250 MG in PREMIX 1 EACH IV SCH (04:14)
--- NOTE | 2016-10-09 08:23 | Cardiology Progress Note ---
Cardiology - PN: Subj Interval history: Cardiology note Telemetry shows steady sinus rhythm in the 70s. O2 sat 97% on 2 L. She is comfortable. Blood pressure 154/82 Status post vasovagal reaction with bradycardia and nausea and near syncope Decreased breath sounds but clear Regular rhythm no gallop or murmur Abdomen soft benign No leg edema Normal Lexiscan cardiac stress test October 06, 2016 EF 50% Status post LAD and RCA stents by Dr. Bob Chronic left bundle branch block recent echo showed ejection fraction of 60% with grade 1 diastolic dysfunction, Mildly dilated left atrium, mild a.s., aortic valve area 1.1 cm and mild TR PA pressure 40 Abnormal HIDA scan demonstrating decreased ejection fraction 12% Plan EGD today Increase carvedilol 12.5 mg twice daily Continue amlodipine 10 mg daily Transfer to telemetry okay with me Exam (Progress Note) - Constitutional Vitals: Period Temp Pulse Resp BP Sys/Proctor Pulse Ox Last 24 Hr 97.6 F-98.9 F 49-73 13-25 116-184/46-76 93-100 Result/EKG - Labs CBC & BMP: 10/06/16 02:43 10/06/16 02:43
[2016-10-09] MEDS ORDERED: LIDOCAINE 2% 5 ML VIAL ONE (10:56)
[2016-10-09] MEDS ORDERED: PROPOFOL 200 MG/20 ML VIAL IV ONE (10:56)
--- NOTE | 2016-10-09 11:05 | History and Physical Update ---
History and Physical Update - Physical Exam Mental Status: alert and oriented Heart: regular rate and rhythm Lung: clear to auscultation Abdomen: within normal limits Vitals: within normal limits
--- NOTE | 2016-10-09 11:07 | Operative Note ---
Date of procedure: 10/09/16 Pre-op diagnosis: persistent nausea Procedure: EGD 86-year-old female with persistent nausea of unclear etiology on Plavix which is been held now for 3 days for upper endoscopy to further evaluate. HIDA scan just showed decreased ejection fraction. Informed percent was obtained the patient She was sedated with Mac anesthesia per anesthesia protocol. Patient was placed in left lateral decubitus position the Olympus flexible video upper endoscope was inserted into the oral cavity under direct vision the esophagus was intubated. Findings: Esophagus-normal proximal mid esophageal mucosa distal esophagus with moderate hiatal hernia distal esophageal stricture is present. Due to her Plavix only been held for 3 days it is too high risk to dilate this at this time and clinical significance is unclear. Stomach-normal insufflation normal mucosa to direct retroflex views of the body , fundus, cardia and antrum of the stomach. Pylorus-normal Duodenum-normal the bulb the duodenum to the third portion of the duodenum. The procedure terminated patient our procedure well she's discharge recovery in good condition. Postop diagnosis: #1 gastroesophageal reflux disease with moderate hiatal hernia-continue PPI treatment and antireflux precautions. #2 esophageal stricture can consider esophageal dilatation after Plavix has been held an additional 48 hours unclear whether this would be helpful with her persistent nausea. #3 biliary dyskinesia-most likely causative source for her persistent nausea and decreased appetite consider cholecystectomy if cleared by cardiology. Anesthesia: MAC Surgeon / Physician: Kenyon Tripp Estimated blood loss: none Specimens: none sent Condition: stable Disposition: post procedure unit Results - Labs CBC & BMP: 10/06/16 02:43 10/06/16 02:43 Discharge Plan - Discharge Medications No Action amLODIPine [Norvasc] 10 mg PO DAILY Aspirin Tab 325 mg PO DAILY #30 tablet Atorvastatin [Lipitor] 40 mg PO BEDTIME #30 tablet Nitroglycerin Sl Tab [Nitrostat] 0.4 mg SL Q5M PRN #1 bottle PRN Reason: Chest Pain Clopidogrel [Plavix] 75 mg PO DAILY #30 tablet Carvedilol [Carvedilol] 6.25 mg PO BID - Follow Up or Referral - Forms/Instructions
--- NOTE | 2016-10-09 11:18 | Anesthesia ---
Anesthesia Post OP - Post Ansesthetic Evaluation Patient seen in post op: Yes Resp: within normal limits CV: within normal limits Mental: within normal limits Temp: within normal limits [id number]: within normal limits Nausea and Vomiting: within normal limits Pain: within normal limits
[2016-10-09] MEDS: PANTOPRAZOLE 40 MG TABLET PO SCH ×2 (13:24→21:52)
[2016-10-09] MEDS: CARVEDILOL 12.5 MG TABLET PO SCH ×2 (13:24→21:52)
[2016-10-09] MEDS: ASPIRIN EC 81 MG TABLET PO SCH (13:25)
[2016-10-09] MEDS: amLODIPine 10 MG TABLET PO SCH (13:25)
[2016-10-09] MEDS: ENOXAPARIN 30 MG/0.3 ML SYRINGE SUBCUT SCH (13:25)
[2016-10-09] MEDS: SODIUM CHLORIDE 0.9% 1,000 ML IV SCH ×2 (15:23→21:54)
[2016-10-09] MEDS: ATORVASTATIN 40 MG TABLET PO SCH (21:52)
[2016-10-10] MEDS: LEVOFLOXACIN INJ 250 MG in PREMIX 1 EACH IV SCH (04:11)
[2016-10-10 08:34] LABS: Basophils # 0.2 10*3/uL (0.0-0.2); Basophils % 0.8 % (0.0-0.8); Eosinophils # 0.6 10*3/uL (0.0-0.87); Eosinophils % 3.2 % (0.00-10.9); Hematocrit 49.3 VOL% (35.7-47.0); Hemoglobin 15.6 GM/DL (12.0-16.0); Immature Granulocytes % 0.8 %; Immature Granulocytes Absolute 0.14 #; Lymphocytes # 3.1 10*3/uL (1.4-4.0); Lymphocytes % 16.6 % (21.3-54.2); Mean Corpuscular HGB Conc 31.6 GM/DL (32-36); Mean Corpuscular Hemoglobin 31 PG (27-34); Mean Corpuscular Volume 98.4 FL (87-102); Mean Platelet Volume 11.7 FL (9.6-12.0); Monocytes # 0.6 10*3/uL (0.11-0.8); Monocytes % 3.3 % (1.7-12.7); Neutrophils # 13.9 10*3/uL (1.4-7.4); Neutrophils % 75.3 % (38.7-73.9); Platelet Count 338 T/CUMM (130-400); Red Blood Count 5.01 MC/CUMM (3.8-5.5); Red Cell Distribution Width 14.3 % (9.3-17.3); White Blood Count 18.4 T/CUMM (4-12)
[2016-10-10 08:38] LABS: Apearance,Urine CLEAR (Clear); Bilirubin,Urine Negative (Negative); Blood, Urine Negative (Negative); Glucose,Urine (UA) Negative (Negative); Ketones,Urine Negative (Negative); Mucus,Urine Occasional /LPF (Occasional); Nitrite,Urine Negative (Negative); Protein,Urine Negative; Urine Color Yellow (Yellow); Urine Specific Gravity 1.006 (1.001-1.035); Urine Urobilinogen < 2.0 EU/DL (0.2-1.0); WBC,Urine 1 /HPF (0-6)
[2016-10-10 08:44] LABS: INR 1.1; PT Patient Result 11.3 SECS; Partial Thromboplastin Time 28.5 SECS (0-40)
--- NOTE | 2016-10-10 08:59 | Cardiology Progress Note ---
Cardiology - PN: Subj Interval history: Cardiology note 86-year-old woman admitted with near syncope and presumed vagal reaction. Patient had a reveal monitor implanted almost 2 years ago in [place]. Interrogation shows episodes of sinus bradycardia and several pauses of 3-4 seconds. Findings reviewed with patient. She needs a dual-chamber pacemaker for backup rate support and medication for tachycardia Blood pressure 142/80 O2 sat 96% on room air Decreased breath sounds but clear regular rhythm no murmur or gallop Impression Normal Lexiscan cardiac stress test October 06, 2016 EF 50% Status post LAD and RCA stents by Dr. Bob Chronic left bundle branch block Recent echo showed ejection fraction 60% with grade 1 diastolic dysfunction Abnormal HIDA showing decreased gallbladder ejection fraction 12% EGD yesterday showed GE reflux and moderate size hiatal hernia, and an esophageal stricture which was not dilated due to Plavix. Biliary dyskinesis Symptomatic sinus node dysfunction with bradycardia and pauses Plan Consult for dual-chamber pacemaker Holding Plavix Stricture dilatation in 2 days We will need to discuss cholecystectomy with her and her daughter Exam (Progress Note) - Constitutional Vitals: Period Temp Pulse Resp BP Sys/Proctor Pulse Ox Last 24 Hr 96.4 F-99.3 F 55-69 14-22 99-176/50-79 92-98 Result/EKG - Labs CBC & BMP: 10/10/16 08:10 10/06/16 02:43 Labs: Laboratory Results - last 24 hr 10/10/16 10/10/16 10/10/16 08:08 08:10 08:10 WBC 18.4 H RBC 5.01 Hgb 15.6 Hct 49.3 H MCV 98.4 MCH 31 MCHC 31.6 L RDW 14.3 Plt Count 338 MPV 11.7 Neut % (Auto) 75.3 H Lymph % (Auto) 16.6 L [place] % (Auto) 3.3 Eos % (Auto) 3.2 Baso % (Auto) 0.8 Neut # (Auto) 13.9 H Lymph # (Auto) 3.1 [place] # (Auto) 0.6 Eos # (Auto) 0.6 Baso # (Auto) 0.2 Immature Gran % 0.8 Nucleated RBC % 0.0 Immature Gran # 0.14 Nucleated RBCs # 0.00 INR 1.1 PT Patient/Control Mix 11.3 Circ Anticoag PTT 28.5 Urine Color Yellow Urine Appearance Clear Urine pH 5.0 Ur Specific [place] 1.006 Urine Protein Negative Urine Glucose (UA) Negative Urine Ketones Negative Urine Blood Negative Urine Nitrate Negative Urine Bilirubin Negative Urine Urobilinogen < 2.0 H Urine Leukocytes Negative Urine WBC 1 Urine Mucus Occasional Ur Culture Indicated? Not indicated
[2016-10-10 09:00] LABS: Calcium 9.1 MG/DL (8.5-10.1); Magnesium 2.4 MG/DL (1.8-2.4); Osmolality,Calculated 283.8 MOS/KG (273-304); Potassium 3.8 MMOL/L (3.5-5.1)
[2016-10-10] MEDS: amLODIPine 10 MG TABLET PO SCH (09:06)
[2016-10-10] MEDS: ENOXAPARIN 30 MG/0.3 ML SYRINGE SUBCUT SCH (09:06)
[2016-10-10] MEDS: ASPIRIN EC 81 MG TABLET PO SCH (09:06)
[2016-10-10] MEDS: CARVEDILOL 12.5 MG TABLET PO SCH ×2 (09:06→21:12)
[2016-10-10] MEDS: PANTOPRAZOLE 40 MG TABLET PO SCH ×2 (09:06→21:12)
--- NOTE | 2016-10-10 09:11 | Gastrointestinal Progress Note ---
<Gloria Bautista - Last Filed: 10/10/16 09:09> Assessment and Plan (1) Nausea Status: Acute Assessment and plan: 10/10-No reports of nausea at present time. EGD results noted. HIDA scan results noted. Pt is planned for pacemaker placement later this afternoon. Plan and addendum to follow by Dr Tripp. Current Visit: Yes Gastroenterology - PN: Subj Interval history: CC; Nausea Pt is seen awake, alert, sitting up in bed. States she is feeling better today. She states she was just told by Dr Marie that she will need a pacemaker and will proceed with this later today. She is concerned regarding her gallbladder needing to be removed as well. She denies any nausea or vomiting at present time. Denies any abdominal pain. She was unable to be dilated yesterday during EGD due to Plavix not held adequate amount of time. Abdomen is soft, nontender. ROS: Denies SOB or chest pain Exam (Progress Note) - Constitutional Vitals: Period Temp Pulse Resp BP Sys/Porctor Pulse Ox Last 24 Hr 96.4 F-99.3 F 55-69 14-22 99-176/50-79 92-98 General appearance: normal weight, no acute distress - Head Head exam: Present: normal inspection, normocephalic - Eye Eye exam: Present: other (lids and conjuctiva unremarkable). Absent: scleral icterus - ENT ENT exam: Present: normal exam, normal oropharynx - Neck Neck exam: Present: normal inspection - Respiratory Respiratory exam: Present: clear to auscultation bilaterally. Absent: rales, rhonchi, wheezes - Cardiovascular Cardiovascular exam: Present: regular rate and rhythm. Absent: diastolic murmur , JVD, systolic murmur - GI/Abdominal GI/Abdominal exam: Present: normal bowel sounds, soft. Absent: ascites, distended, mass, organomegaly, tenderness - Extremities Exam Extremities exam: Present: normal inspection, full ROM - Back Exam Back exam: Present: normal inspection - Neurological Exam Neurological exam: Present: alert, oriented X3 - Psychiatric Psychiatric exam: Present: normal affect, normal mood - Skin Skin exam: Present: normal color, warm, dry Results - Labs CBC & BMP: 10/10/16 08:10 10/10/16 08:10 Lab Results: I have reviewed the past 24 hour labs <Kenyon Tripp - Last Filed: 10/10/16 17:17> Assessment and Plan (1) Nausea Status: Acute Current Visit: Yes (2) Colon cancer screening Status: Acute Current Visit: Yes Exam (Progress Note) - Constitutional Vitals: Period Temp Pulse Resp BP Sys/Proctor Pulse Ox Last 24 Hr 97.4 F-99.3 F 55-63 18-20 116-156/55-71 90-96 Results - Labs CBC & BMP: 10/10/16 08:10 10/10/16 08:10
--- NOTE | 2016-10-10 11:44 | XRay Report ---
Referring Physician: Eliazar Yanez MD Exam: XR chest 1V portable Date: October 10, 2016 at 10:37 AM Reason: Pre-pacemaker implantation, elevated WBC, preoperative respiratory evaluation Comparison: Chest one view portable October 06, 2016 Findings: The cardiac silhouette is again enlarged, and there is again mild rightward deviation of the trachea, which may be related to a substernal thyroid. There are minimal bibasilar opacities, and the interstitial markings are slightly prominent bilaterally. This is concerning for minimal pulmonary edema and atelectasis. Pneumonia is felt less likely but is not excluded at the lung bases. No pneumothorax is identified, but minimal bilateral pleural fluid is suspected. The osseous structures appear stable with a remote fracture of the left clavicle. Impression: There has been no significant change. PROCEDURE INTERPRETED AT [facility] DEPARTMENT OF RADIOLOGY Final Report Signed by: Dr. Caroline Loza
[2016-10-10] MEDS ORDERED: ceFAZolin 1,000 MG VIAL IRRIG ONE (12:44)
[2016-10-10] MEDS: SODIUM CHLORIDE 0.9% 1,000 ML IV SCH (13:45)
[2016-10-10] MEDS ORDERED: diphenhydrAMINE CAP 25 MG CAPSULE PO PRN (14:27)
--- NOTE | 2016-10-10 16:58 | General Surgery Consult Note ---
Assessment and Plan (1) Cholestasis Status: Acute Assessment and plan: Impression: Mildly symptomatic biliary dyskinesia Plan: Symptoms appear mild. She is currently been tolerating a diet per her and her daughter's report. Her episodes of nausea and vomiting could be related to gallbladder dyskinesia. She has no evidence of acute cholecystitis. I'll start her on Actigall. We discussed the possibility of cholecystectomy in the future. She would like to see how she does on the Actigall. Prescription for Actigall was written. I'll see her in 3-4 weeks in the office. If symptoms change or cholecystectomy is needed sooner I'll be happy to see her sooner. Current Visit: Yes History of Present Illness Chief complaint: consult for biliary dyskinesia History of present illness: Ms. Aquino is a 86 year old female with a 2-3 year history of intermittent episodes of nausea and vomiting. Her daughter is present in the room. The episodes are somewhat infrequent. There is a strong relationship to having nausea and vomiting after eating fatty and greasy foods. She has had a HIDA scan showing biliary dyskinesia. She has other medical problems and is to undergo cardiac pacemaker implantation tomorrow. Patient denies ever having any abdominal pain including right upper quadrant pain. Home Medications Medication Instructions Recorded Confirmed Type amLODIPine [Norvasc] 10 mg PO DAILY 02/23/15 10/05/16 History Aspirin Tab 325 mg PO DAILY #30 tablet 02/25/15 10/05/16 Rx Atorvastatin [Lipitor] 40 mg PO BEDTIME #30 tablet 02/25/15 10/05/16 Rx Clopidogrel [Plavix] 75 mg PO DAILY #30 tablet 02/25/15 10/05/16 Rx Nitroglycerin Sl Tab [Nitrostat] 0.4 mg SL Q5M PRN #1 bottle 02/25/15 10/05/16 Rx Carvedilol [Carvedilol] 6.25 mg PO BID 10/05/16 10/05/16 History Allergies Allergy/AdvReac Type Severity Reaction Status Date / Time No Known Allergies Allergy Unverified 02/23/15 13:16 Medical,Surgical,& Family Hx - Medical History Cardio: History of: Cardiac Dysrhythmia, CAD (BMS is RCA andLCx 02/23/15), Hypertension, [place], Valvular Heart Disease Neurology: No history of: Seizures Rheumatology: History of;: Rheumatoid Arthritis Respiratory: History of: Respiratory Problems (Pulmonary hypertension) Musculoskeletal: No history of: Amputation - Surgical History Cardiac Surgeries: Patient Denies: Cardiac Catheterization Thoracic Surgeries: Patient denies;: Lobectomy HEENT Surgeries: Surgical HX of: Tonsilectomy & Adenoidectomy - Family History Family History: Reports;: Family Cancer (MOTHER-BREAST CA SISTER-LUEKIMIA), Family Diabetes (SISTER), Family Heart Disease (MOTHER, SISTERS), Family Hypertension (SISTER) - Social History Smoking Status: Never smoker Frequency of Alcohol Use: None Type of Drug Use: None Exam - Constitutional Vitals: Period Temp Pulse Resp BP Sys/Proctor Pulse Ox Last 24 Hr 97.4 F-99.3 F 55-63 18-20 116-156/55-71 90-96 General appearance: no acute distress - Head Head exam: Present: normocephalic - Neck Neck exam: Present: normal inspection, trachea midline - Respiratory Respiratory exam: Present: clear to auscultation bilaterally - Cardiovascular Cardiovascular exam: Present: RRR - GI/Abdominal GI/Abdominal exam: Present: soft (mildly tender to palpation in the right upper quadrant. No Webber's. No peritoneal signs. No other abdominal tenderness or distention.) - Extremities Exam Extremities exam: Present: normal inspection - Back Exam Back exam: Present: normal inspection - Neurological Exam Neurological exam: Present: alert, oriented X3 Speech: Present: normal - Skin Skin exam: Present: normal color Results - Labs CBC & BMP: 10/10/16 08:10 10/10/16 08:10 Lab Results: I have reviewed the past 24 hour labs
--- NOTE | 2016-10-10 18:24 | Electrophysiology Consultation ---
History of Present Illness - Data of Consult Patient: new to practice Consult date: 10/10/16 Requesting Physician: Qasim Marie - Consult Narrative Reason for consult: Syncope History of present illness: Ms. Aquino is a 86 year old female with h/o CAD s/p remote PCI. She was admitted after an episode of syncope. ECG and telemetry showed SR, LBBB with runs of PAT , prominent RVT. Several symptomatic conversion pauses. She also had GI discomfort. GI workup found gallbladder dyskinesis, for which medical management was pursued. Cardiac eval showed no high risk ischemia. There was no ACS. She has chronically elevated WBCs, for which hematological evaluation was planned but not pursued so far. So far, no evidence of active infection. She remained symptomatic during this hospital stay from tachybrady. Echo showed preserved systolic function, moderate . CC: Adonis Saeed MD - Home Medications and Allergies Home Medications: Home Medications Medication Instructions Recorded Confirmed Type amLODIPine [Norvasc] 10 mg PO DAILY 02/23/15 10/05/16 History Aspirin Tab 325 mg PO DAILY #30 tablet 02/25/15 10/05/16 Rx Atorvastatin [Lipitor] 40 mg PO BEDTIME #30 tablet 02/25/15 10/05/16 Rx Clopidogrel [Plavix] 75 mg PO DAILY #30 tablet 02/25/15 10/05/16 Rx Nitroglycerin Sl Tab [Nitrostat] 0.4 mg SL Q5M PRN #1 bottle 02/25/15 10/05/16 Rx Carvedilol [Carvedilol] 6.25 mg PO BID 10/05/16 10/05/16 History Allergies/Adverse Reactions: Allergies Allergy/AdvReac Type Severity Reaction Status Date / Time No Known Allergies Allergy Unverified 02/23/15 13:16 Medical,Surgical,& Family Hx - Medical History Cardio: History of: Cardiac Dysrhythmia, CAD (BMS is RCA andLCx 02/23/15), Hypertension, [place], Valvular Heart Disease Neurology: No history of: Seizures Rheumatology: History of;: Rheumatoid Arthritis Respiratory: History of: Respiratory Problems (Pulmonary hypertension) Musculoskeletal: No history of: Amputation - Surgical History Cardiac Surgeries: Patient Denies: Cardiac Catheterization Thoracic Surgeries: Patient denies;: Lobectomy HEENT Surgeries: Surgical HX of: Tonsilectomy & Adenoidectomy - Family History Family History: Reports;: Family Cancer (MOTHER-BREAST CA SISTER-BENITA), Family Diabetes (SISTER), Family Heart Disease (MOTHER, SISTERS), Family Hypertension (SISTER) - Social History Smoking Status: Never smoker Frequency of Alcohol Use: None Type of Drug Use: None 12 point system: reviewed and no additional remarkable complaints except as stated Exam - Constitutional Vitals: Period Temp Pulse Resp BP Sys/Proctor Pulse Ox Last 24 Hr 97.4 F-99.3 F 55-63 18-20 116-156/55-71 90-96 General appearance: normal weight - Head Head exam: Present: normal inspection - Eye Eye exam: Absent: conjunctival injection Pupils: Absent: dilated - ENT ENT exam: Present: normal external ear exam - Neck Neck exam: Present: normal inspection - Respiratory Respiratory exam: Present: clear to auscultation bilaterally - Cardiovascular Cardiovascular exam: Present: irregular rhythm, systolic murmur - GI/Abdominal GI/Abdominal exam: Present: normal bowel sounds - Extremities Exam Extremities exam: Present: normal inspection, normal capillary refill. Absent: edema - Back Exam Back exam: Present: normal inspection - Neurological Exam Neurological exam: Present: alert, oriented X3 - Psychiatric Psychiatric exam: Present: normal affect, normal mood - Skin Skin exam: Present: normal color, warm. Absent: cyanosis Results - Labs CBC & BMP: 10/10/16 08:10 10/10/16 08:10 Lab Results: I have reviewed the past 24 hour labs Assessment and Plan (1) Tachy-sharmaine syndrome Status: Acute Assessment and plan: 86yF with symptomatic tachybrady, PAT/RVR with conversion pauses, presyncope. CAD s/p remote PCI, no ACS. Preserved LVEF with moderate . Symptomatic gallbladder dysfunction. Susp. hematological disorder/elev WBC. -We discussed risks/benefit of management option for her symptomat tachybrady. High risk symptoms and she has evidence of distal conduction disease. We will proceed with a DDD PM implant in conscious sedation. -Cont ASA, Plavix -NPO after MN Current Visit: Yes (2) Non-ST elevation [place] (NSTEMI) Status: Acute Current Visit: No (3) Essential hypertension Status: Chronic Current Visit: No (4) Dyslipidemia Status: Chronic Current Visit: No (5) Dizziness Status: Acute Current Visit: No (6) UTI (urinary tract infection) Status: Acute Current Visit: No (7) CAD (coronary artery disease) Status: Chronic Current Visit: No Qualifiers: Coronary Disease-Associated Artery/Lesion type: [place] artery [place] vs. transplanted heart: wr[place] heart Associated angina: without angina Qualified Code(s): I25.10 - Atherosclerotic heart disease of [place] coronary artery without angina pectoris (8) Near syncope Status: Acute Current Visit: Yes (9) Leukocytosis Status: Acute Current Visit: Yes (10) Nausea Status: Acute Current Visit: Yes (11) Cholestasis Status: Acute Current Visit: Yes Specialty Discharge - Follow Up or Referrals Follow up with: Rigoberto Courtney MD [Physician] - 1 Month
[2016-10-10] MEDS: ATORVASTATIN 40 MG TABLET PO SCH (21:12)
[2016-10-10] MEDS: DOCUSATE SODIUM 100 MG CAPSULE PO PRN (21:12)
[2016-10-10] MEDS: URSODIOL 300 MG CAPSULE PO SCH (21:13)
[2016-10-11 03:23] LABS: Basophils # 0.2 10*3/uL (0.0-0.2); Basophils % 0.9 % (0.0-0.8); Eosinophils # 0.6 10*3/uL (0.0-0.87); Eosinophils % 3.3 % (0.00-10.9); Hematocrit 44.7 VOL% (35.7-47.0); Hemoglobin 14.5 GM/DL (12.0-16.0); Immature Granulocytes % 0.8 %; Immature Granulocytes Absolute 0.13 #; Lymphocytes % 17.7 % (21.3-54.2); Mean Corpuscular HGB Conc 32.4 GM/DL (32-36); Mean Corpuscular Hemoglobin 31 PG (27-34); Mean Corpuscular Volume 94.9 FL (87-102); Mean Platelet Volume 11.8 FL (9.6-12.0); Monocytes # 0.6 10*3/uL (0.11-0.8); Monocytes % 3.5 % (1.7-12.7); Neutrophils # 12.7 10*3/uL (1.4-7.4); Neutrophils % 73.8 % (38.7-73.9); Platelet Count 335 T/CUMM (130-400); Red Blood Count 4.71 MC/CUMM (3.8-5.5); Red Cell Distribution Width 14.2 % (9.3-17.3); White Blood Count 17.1 T/CUMM (4-12)
[2016-10-11 03:32] LABS: INR 1.1; PT Patient Result 11.6 SECS
[2016-10-11 03:53] LABS: Calcium 8.9 MG/DL (8.5-10.1); Magnesium 2.2 MG/DL (1.8-2.4); Osmolality,Calculated 290.4 MOS/KG (273-304); Potassium 3.7 MMOL/L (3.5-5.1)
[2016-10-11] MEDS: LEVOFLOXACIN INJ 250 MG in PREMIX 1 EACH IV SCH (04:45)
--- NOTE | 2016-10-11 07:34 | History and Physical Update ---
Sedation H&P Update - History and Physical H&P was reviewed, the patient examined and there: are no changes in the patients condition since last H&P was completed. - Dictation Physical: refer to H&P completed by admitting physician - Physical Exam Mental Status: alert and oriented Heart: other (irregular, tachybrady. hsm) Lung: clear to auscultation Abdomen: within normal limits Vitals: within normal limits - Sedation Plan for Sedation: moderate Patient Consent: Procedure disscussed with patient and patinet has consented., Risks and benefits were discussed with patient,including infection,, bleeding, injury to surrounding structures, seizure, temporary nerve, Patient understands and accepts potential risks/benefits and agrees to ASA Class: III Airway Assessment: Class II: Soft palate, uvula, fauces visible
[2016-10-11] MEDS: amLODIPine 10 MG TABLET PO SCH ×2 (07:37→08:43)
[2016-10-11] MEDS: CARVEDILOL 12.5 MG TABLET PO SCH ×2 (07:37→08:43)
[2016-10-11] MEDS ORDERED: ceFAZolin 1,000 MG VIAL ONE (07:57)
[2016-10-11] MEDS ORDERED: fentaNYL 100 MCG/2 ML VIAL ONE (07:57)
[2016-10-11] MEDS ORDERED: HEPARIN/NACL 0.9% 2 UNITS/ML 500 ML IV ONE (07:57)
[2016-10-11] MEDS ORDERED: LIDOCAINE 1% 20 ML VIAL ONE ×2 (07:57→09:02)
[2016-10-11] MEDS ORDERED: MIDAZOLAM 2 MG/2 ML VIAL ONE (07:57)
[2016-10-11] MEDS ORDERED: ceFAZolin 1,000 MG VIAL IRRIG ONE (08:00)
[2016-10-11] MEDS: ASPIRIN EC 81 MG TABLET PO SCH ×2 (08:43→13:21)
[2016-10-11] MEDS: URSODIOL 300 MG CAPSULE PO SCH ×3 (08:43→21:37)
[2016-10-11] MEDS: PANTOPRAZOLE 40 MG TABLET PO SCH ×3 (08:43→21:38)
[2016-10-11] MEDS ORDERED: TISSUE ADHESIVE 1 EACH APPLICATOR TOP ONE (09:02)
[2016-10-11] MEDS ORDERED: oxyCODONE/ACETAMINOPHEN 5-325 MG TABLET PO PRN (09:18)
[2016-10-11] MEDS ORDERED: ONDANSETRON 4 MG/2 ML VIAL ONE (09:35)
--- NOTE | 2016-10-11 09:51 | Cardiac Pacemaker ---
- Preoperative diagnosis Date of Procedure:: 10/11/16 Preoperative Diagnosis: Documented nonreversible symptomatic bradycardia due to , sinus node dysfunction Pre-op Diagnosis: +PAT/RVR Post-op diagnosis: same Procedure: PROCEDURAL SUMMARY DDD pacemaker implant from left axillary access. ILR explant Successful procedures, no complications. PLAN Bed rest for 4 hours. CXR, ECG stat. Ancef 1g iv. q8h 2x Routine post PM implant nursing care. DIAGNOSES SSS, tachybrady syndrome Sedation A timeout was performed. Conscious sedation was initiated and maintained with iv. Versed and Fentanyl. The patient was continuously monitored by electrocardiography, pulse oximetry and NIBP. Antibiotic prophylaxis Iv. Ancef was used prior to the procedure. PROCEDURE The left pectoral area was meticulously prepared with ChloroPrep surgical scrub. Sterile draping was applied and Ioban was used to cover the operation site. The image intensifier was draped with a sterile bag and positioned over the patient's chest. After infiltration with 1% lidocaine, an incision was made in the left infraclavicular area, parallel to the deltopectoral groove. The incision was carried down to the level of the pectoral fascia, with careful cauterization of all bleeders. A subcutaneous pocket was then created superficial to the pectoral fascia with sharp and blunt dissection and hemostasis was achieved. A micropuncture kit was used to access the left axillary vein under fluoroscopic guidance. A peel-away introducer was inserted over the guidewire. The dilator of the introducer was removed, the guidewire was secured to the drape, and the right ventricular lead was passed through the introducer and advanced to the right ventricular outflow tract under fluoroscopic guidance. The introducer sheath was then removed. The ventricular lead was positioned in the right ventricular cavity using a curved stiffening stylet. The curved stylet was replaced with a straight stylet which was advanced to the electrode tip and used to deploy the active fixation mechanism. The lead was tested repeatedly for stability. A second peel-away introducer was inserted over the guidewire. The dilator of the introducer was removed, the guidewire was secured to the drape, and the atrial lead was passed through the introducer and advanced to the right atrium. Under fluoroscopic guidance, the atrial electrode was then positioned in the right atrial cavity using a curved stylet and tested repeatedly for stability. The leads were tested for stability and phrenic nerve stimulation was excluded with pacing at 10 Volts. The leads were anchored in the subcutaneous tissue with nonabsorbable suture on the anchoring sleeve near the point of entry to the vein. The PM generator was then attached to the leads and sealed in the prescribed manner. The wound was flushed with Ancef and the device was placed into the pocket. The wound was then closed using a double layer of 2-0 absorbable Vicryl sutures followed by a subcuticular running suture with 4-0 Monocryl, then Exofin. A sterile dressing was applied. The device was programmed as detailed below. The left parasternal area was then prepared with ChloroPrep surgical scrub. Sterile draping was applied. After infiltration with 1% lidocaine, an incision was made above the ILR and the device was removed. Good hemostasis was noted. The wound was then closed with Steristrips and a sterile dressing was then applied. Implants Device: Medtronic Advisa DDD PM, SN: [id number], location: left infraclavicular Right ventricular lead: Medtronic [id number], SN: [id number], location: RV septum Right atrial lead: Medtronic 5076-52, SN: [id number], location: RA appendage The implanted system is MRI conditional. Explanted ILR: Medtronic LinQ SN: [id number] Measurements RV bipolar: threshold 1.4V @ 0.5 ms, R 6.2 mV, impedance 1380 Ohm RA bipolar: threshold 0.5V @ 0.5 ms, P 2.2 mV, impedance 663 Ohm Settings MVPR 60/130 Mode switch on Anesthesia: moderate conscious sedation Surgeon / Physician: Eliazar Yanez Court Advocate: other (Gloria) Estimated blood loss: none, minimal Specimens: none sent Condition: stable Disposition: floor - Medications / Follow-up Referrals: Rigoberto Courtney MD [Physician] - 1 Month
--- NOTE | 2016-10-11 10:30 | XRay Report ---
History: Lead placement Date: 10/11/2016 at 9:55 AM Study: Chest x-ray AP portable Comparison exam: Chest x-ray 10/10/2016 A left subclavian dual lead transvenous pacemaker is in place, generally satisfactory in appearance. There is no pneumothorax. There is cardiomegaly. There is some soft tissue mass effect superiorly in the mediastinum to the right, with slight deviation of the trachea to the left at this point. This could represent substernal extension of the right lobe of the thyroid, though subclavian artery aneurysm, lymphadenopathy, and other etiologies would also be in the differential diagnosis. This was likely present on an outside portable chest x-ray from February 23, 2015 performed at [facility], suggesting a fairly stable process since that time. There is no previous cross-sectional imaging study of the chest for comparison. The pulmonary vasculature is not engorged. There is no gross pleural effusion. There is mild accentuation of the interstitial markings in the lung bases related to shallow inspiration. There is mild thoracic spondylosis. There is an old mid shaft fracture left clavicle. Impression: There is no evidence of pneumothorax following pacemaker placement. Nonspecific soft tissue mass effect in the right paratracheal area just below the level of the thoracic inlet. Consider substernal thyroid, subclavian artery aneurysm or ectasia, and lymphadenopathy. CT of the chest would provide clarification as felt clinically necessary. PROCEDURE INTERPRETED AT [facility] DEPARTMENT OF RADIOLOGY Final Report Signed by: Dr. Rosio Urrutia
--- NOTE | 2016-10-11 15:49 | Cardiology Progress Note ---
Cardiology - PN: Subj Interval history: Cardiology note Status post Medtronic Advisa dual-chamber pacemaker today No temperature. Blood pressure 134/76 Clear lungs. Regular rhythm. Pacer pocket looks good. Impression Status post dual-chamber pacemaker for tachybrady syndrome. Left bundle branch block Status post LAD and RCA stents EGD showed GE reflux and moderate hiatal hernia and GE stricture. Patient was on Plavix and stricture not dilated decreased gallbladder ejection fraction 12%. Plan Patient declines to have stricture dilatation at this time and wants to go home. This was discussed with her daughter present for the full discussion. Carvedilol 25 mg twice daily Amlodipine 10 mg daily Lipitor Home tomorrow. Follow-up with Dr. Bob in the office 2 weeks Exam (Progress Note) - Constitutional Vitals: Period Temp Pulse Resp BP Sys/Proctor Pulse Ox Last 24 Hr 96.7 F-98.5 F 58-606 16-20 118-174/54-78 92-96 Result/EKG - Labs CBC & BMP: 10/11/16 03:10 10/11/16 03:10 Labs: Laboratory Results - last 24 hr 10/11/16 10/11/16 10/11/16 03:10 03:10 03:10 WBC 17.1 H RBC 4.71 Hgb 14.5 Hct 44.7 MCV 94.9 MCH 31 MCHC 32.4 RDW 14.2 Plt Count 335 MPV 11.8 Neut % (Auto) 73.8 Lymph % (Auto) 17.7 L [place] % (Auto) 3.5 Eos % (Auto) 3.3 Baso % (Auto) 0.9 H Neut # (Auto) 12.7 H Lymph # (Auto) 3.0 [place] # (Auto) 0.6 Eos # (Auto) 0.6 Baso # (Auto) 0.2 Immature Gran % 0.8 Nucleated RBC % 0.0 Immature Gran # 0.13 Nucleated RBCs # 0.00 INR 1.1 PT Patient/Control Mix 11.6 Circ Anticoag PTT 28.0 Sodium 147 H Potassium 3.7 Chloride 106 Carbon Dioxide 29 Anion Gap 15.7 H BUN 10 Creatinine 0.50 L GFR Calculation 89 BUN/Creatinine Ratio 20.00 Glucose 92 Calculated Osmolality 290.4 Calcium 8.9 Magnesium 2.2 Specialty Discharge - Follow Up or Referrals Follow up with: Rigoberto Courtney MD [Physician] - 04/10/17 9:30 am
[2016-10-11] MEDS: CARVEDILOL 25 MG TABLET PO SCH (21:38)
[2016-10-11] MEDS: ATORVASTATIN 40 MG TABLET PO SCH (21:38)
[2016-10-12] MEDS: LEVOFLOXACIN INJ 250 MG in PREMIX 1 EACH IV SCH (02:39)
[2016-10-12 04:35] LABS: Basophils # 0.1 10*3/uL (0.0-0.2); Basophils % 0.8 % (0.0-0.8); Eosinophils # 0.5 10*3/uL (0.0-0.87); Eosinophils % 3.2 % (0.00-10.9); Hematocrit 45.9 VOL% (35.7-47.0); Hemoglobin 14.7 GM/DL (12.0-16.0); Immature Granulocytes % 0.5 %; Immature Granulocytes Absolute 0.08 #; Lymphocytes % 17.8 % (21.3-54.2); Mean Corpuscular Hemoglobin 31 PG (27-34); Mean Corpuscular Volume 96.6 FL (87-102); Mean Platelet Volume 11.8 FL (9.6-12.0); Monocytes # 0.6 10*3/uL (0.11-0.8); Monocytes % 3.5 % (1.7-12.7); Neutrophils # 12.3 10*3/uL (1.4-7.4); Neutrophils % 74.2 % (38.7-73.9); Platelet Count 331 T/CUMM (130-400); Red Blood Count 4.75 MC/CUMM (3.8-5.5); White Blood Count 16.6 T/CUMM (4-12)
[2016-10-12 05:05] LABS: Calcium 8.7 MG/DL (8.5-10.1); Magnesium 2.3 MG/DL (1.8-2.4); Osmolality,Calculated 285.7 MOS/KG (273-304); Potassium 3.9 MMOL/L (3.5-5.1)
[2016-10-12 07:52] VITALS: BP 158/79
--- NOTE | 2016-10-12 08:20 | Cardiology Progress Note ---
Cardiology - PN: Subj Interval history: Cardiology note Day 1 status post Medtronic advisa dual-chamber pacemaker for sinus node dysfunction with symptomatic bradycardia and episodes of PAT No temperature. Pacer pocket small ecchymotic bruise but no hematoma wound edges well approximated Telemetry shows atrial pacing Decreased breath sounds but clear Regular rhythm no murmur Abdomen soft Lab data today White count 16.6 hemoglobin 14.7 hematocrit 45.9 Sodium 145 potassium 3.9 chloride 105 CO2 27 BUN 8 creatinine 0.60 Glucose 92 Impression Status post Medtronic dual-chamber pacemaker for sinus node dysfunction and symptomatic bradycardia Chronic left bundle branch block Status post LAD and RCA stents with Dr. Bob Normal Lexiscan cardiac stress test October 06, 2016 Biliary dyskinesia decreased gallbladder ejection fraction 12% Recent EGD by Dr. Ball, showed GE reflux and a moderate size hiatal hernia with esophageal stricture which was not dilated to Plavix. Patient declines to stay in the hospital and will have stricture dilatation as an outpatient Plan Pacemaker interrogation today. Home today Pacemaker follow-up with Office follow-up with Dr. Bob in 2 weeks Carvedilol 25 mg twice daily Norvasc 10 mg daily Exam (Progress Note) - Constitutional Vitals: Period Temp Pulse Resp BP Sys/Proctor Pulse Ox Last 24 Hr 96.9 F-99.0 F 60-606 16-20 118-158/54-82 92-96 Result/EKG - Labs CBC & BMP: 10/12/16 03:51 10/12/16 03:51 Labs: Laboratory Results - last 24 hr 10/12/16 10/12/16 03:51 03:51 WBC 16.6 H RBC 4.75 Hgb 14.7 Hct 45.9 MCV 96.6 MCH 31 MCHC 32.0 RDW 14.0 Plt Count 331 MPV 11.8 Neut % (Auto) 74.2 H Lymph % (Auto) 17.8 L [place] % (Auto) 3.5 Eos % (Auto) 3.2 Baso % (Auto) 0.8 Neut # (Auto) 12.3 H Lymph # (Auto) 3.0 [place] # (Auto) 0.6 Eos # (Auto) 0.5 Baso # (Auto) 0.1 Immature Gran % 0.5 Nucleated RBC % 0.0 Immature Gran # 0.08 Nucleated RBCs # 0.00 Sodium 145 Potassium 3.9 Chloride 105 Carbon Dioxide 27 Anion Gap 16.9 H BUN 8 Creatinine 0.60 GFR Calculation 84 BUN/Creatinine Ratio 13.00 Glucose 92 Calculated Osmolality 285.7 Calcium 8.7 Magnesium 2.3 Specialty Discharge - Follow Up or Referrals Follow up with: Rigoberto Courtney MD [Physician] - 11/13/16 9:30 am
--- NOTE | 2016-10-12 08:22 | XRay Report ---
XR chest 2V Date: 10/12/2016 4:00 AM History: Lead placement Comparison: 10/11/2016 Technique: PA and lateral chest Findings: The heart is slightly smaller in size with stable left subclavian atrioventricular permanent pacemaker. No evidence of pneumothorax. Chronic scarring in the lungs with minimal atelectasis at the lung bases. Probable nipple shadow in right costophrenic angle location not identified on previous exam. Diffuse arterial calcifications are noted in the tortuous aorta. Old healed mid left clavicular fracture with degenerative changes. Residual deviation of the trachea to the left at the thoracic inlet. Impression: Stable left subclavian atrioventricular permanent pacemaker with no pneumothorax. Chronic scarring with atelectasis at the lung bases. Probable nipple shadow in right costophrenic angle location not identified and previous exam. Deviation of the trachea to the left at the thoracic inlet which can be seen with enlargement of the right lobe of the thyroid gland. Thyroid ultrasound may be helpful for further evaluation. PROCEDURE INTERPRETED AT [facility] DEPARTMENT OF RADIOLOGY Final Report Signed by: Dr. Colette Madison
[2016-10-12] MEDS: CARVEDILOL 25 MG TABLET PO SCH (08:35)
[2016-10-12] MEDS: amLODIPine 10 MG TABLET PO SCH (08:35)
[2016-10-12] MEDS: PANTOPRAZOLE 40 MG TABLET PO SCH (08:35)
[2016-10-12] MEDS: ASPIRIN EC 81 MG TABLET PO SCH (08:35)
[2016-10-12] MEDS: DOCUSATE SODIUM 100 MG CAPSULE PO PRN (08:35)
[2016-10-12] MEDS: URSODIOL 300 MG CAPSULE PO SCH (08:37)
--- NOTE | 2016-10-12 08:42 | Physician Query Form ---
CLICK EDIT DOCUMENT TO SELECT QUERY ANSWER --> OK --> SIGN PROVIDERS: Make your selection(s) from the choices in EACH section by typing an "x" and enter comments in the comment section. Please use your independent medical judgment in providing your response. This request does not imply that any particular answer is desired or expected. CLINICAL INDICATORS: (Providers should not edit this section) Based on documentation of "Acute syncope" "Bradycardia" "Symptomatic sinus node dysfunction with bradycardia and pauses". Dual chamber pacemaker placed. Based on the above, could you clarify the appropriate diagnosis, if significant , that supports the above abnormalities and additional evaluation, monitoring, and/or treatment rendered: ( x) Syncope related to sinus node dysfunction ( ) Syncope was NOT related to sinus node dysfunction ( ) Other, please specify: ( ) Clinically unable to determine COMMENTS: Use of terms such as suspected, likely, or probable (associated with a specific diagnosis that is being evaluated, monitored, or treated as if it exists) are acceptable and can be restated in the discharge summary if not ruled out. ALMAD
[2016-10-12] MEDS ORDERED: ENOXAPARIN 40 MG/0.4 ML SYRINGE SUBCUT SCH (09:00)
[2016-10-12] MEDS ORDERED: DILTIAZEM CD 240 MG CAPSULE PO SCH (09:30)
--- NOTE | 2016-10-12 09:50 | Electrophysiology Progress Not ---
Assessment and Plan (1) Tachy-sharmaine syndrome Status: Acute Assessment and plan: 86yF with symptomatic tachybrady, PAT/RVR with conversion pauses, presyncope. CAD s/p remote PCI, no ACS. Preserved LVEF with moderate . Symptomatic gallbladder dysfunction. Susp. hematological disorder/elev WBC. 10/11:DDD PM implant -SSS tachybrady. Cont Toprol XL. D/c amlodipine. Start Cardizem 240 mg qd -Discussed post PM implant activity limitations and implant site care. -FU in 1 week for PM check Current Visit: Yes (2) Non-ST elevation RI (NSTEMI) Status: Acute Current Visit: No (3) Essential hypertension Status: Chronic Current Visit: No (4) Dyslipidemia Status: Chronic Current Visit: No (5) Dizziness Status: Acute Current Visit: No (6) UTI (urinary tract infection) Status: Acute Current Visit: No (7) CAD (coronary artery disease) Status: Chronic Current Visit: No Qualifiers: Qualified Code(s): I25.10 - Atherosclerotic heart disease of w[place]ot coronary artery without angina pectoris (8) Near syncope Status: Acute Current Visit: Yes (9) Leukocytosis Status: Acute Current Visit: Yes (10) Nausea Status: Acute Current Visit: Yes (11) Cholestasis Status: Acute Current Visit: Yes Electrophysiology Subjective Interval history: Had an epsiode of AT 1:1 conduction last night. No recurrence of symptomatic bradycardia since the PM implant. Exam - Constitutional Vitals: Period Temp Pulse Resp BP Sys/Proctor Pulse Ox Last 24 Hr 96.9 F-99.0 F 60-606 16-20 118-158/54-82 92-96 General appearance: normal weight, no acute distress - Head Head exam: Present: normal inspection - Eye Eye exam: Absent: conjunctival injection Pupils: Absent: dilated - ENT ENT exam: Present: normal external ear exam - Neck Neck exam: Present: normal inspection - Respiratory Respiratory exam: Present: clear to auscultation bilaterally - Cardiovascular Cardiovascular exam: Present: regular rate and rhythm, systolic murmur - GI/Abdominal GI/Abdominal exam: Present: normal bowel sounds - Extremities Exam Extremities exam: Present: normal inspection, normal capillary refill. Absent: edema - Back Exam Back exam: Present: normal inspection - Neurological Exam Neurological exam: Present: alert, oriented X3 - Psychiatric Psychiatric exam: Present: normal affect, normal mood - Skin Skin exam: Present: normal color, warm, other (no PM hematoma). Absent: cyanosis Results - Labs CBC & BMP: 10/12/16 03:51 10/12/16 03:51 Lab Results: I have reviewed the past 24 hour labs Specialty Discharge - Follow Up or Referrals Follow up with: Rigoberto Courtney MD [Physician] - 11/13/16 9:30 am - Speciality Discharge Instructions Cardiology Instructions: FU with dr. Yanez in 1 week for PM/wound check
--- NOTE | 2016-10-12 10:19 | Discharge Summary ---
<Roya Omer E - Last Filed: 10/12/16 10:51> Hospital Course - Hospital Course Hospital Course: Ms. Aquino is a 86 year old female with history of palpitations and near syncope as well as coronary artery disease, mitral regurgitation, pulmonary hypertension. She was transferred to our facility from [facility] on 10/05/16 with near syncope, nausea, and frequent multifocal PVCs. 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 She was noted to have a left bundle branch block on the EKG from the EMPLOYEE RELATIONS CONS[employer]ANT which was unchagned from previous EKG. She underwent Lexiscan stress testing which was low risk and revealed no clear evidence of reversible ischemia. Cardiac biomarkers were negative. Dr. Yanez, electrophysiology, was called in consultation to evaluate her for possible pacemaker implant. She was noted to have symptomatic tachybrady, PAT/RVR with conversion pauses. After discussing the risks/benefits of management for her symptomatic tachybrady, the patient and her family agreed to proceed with DDD PM implant. She underwent Medtronic advisa dual-chamber pacemaker placement for sinus node dysfunction with symptomatic bradycardia and episodes of PAT on 10/11/[address] Yanez. The morning following PM implant, she is doing well. Pacemaker is functioning appropriately. Dressing is dry and intact. There is no bleeding or hematoma from pacemaker site. There is mild ecchymosis. Post pacemaker implant activity limitations and implant site care were discussed. She was seen in consultation by GI for her nausea and underwent HIDA scan and EGD which revealed GERD with moderate hiatal hernia, esophageal stricture, and biliary dyskinesia. This was felt to be the most likely cause for her persistent nausea. General surgery was consulted and discussed the possibility of a cholecystectomy. Dr. Courtney will see her back in clinic for follow up in 3 -4 weeks regarding this. On her chest x-ray the morning of discharge, she was noted to have deviation of the trachea to the left at the thoracic inlet which can be seen with enlargement of the right lobe of the thyroid gland. She will need an outpatient thyroid ultrasound within 1 week to follow up with her primary care provider. Her WBC count was elevated on admission and has remained elevated throughout admission. There is no clear evidence of infection. She has been afebrile. Urinalysis and cultures were negative. She was treated empirically with antibiotics. She will need to follow up with her primary care provider, Dr. Wood for further evaluation and workup of her elevated WBC and to discuss results of her thyroid ultrasound. She will continue her Toprol XL at discharge. Her amlodipine has been discontinued and she will be started on Cardizem CD 240mg orally daily. She will follow up with Dr. Yanez in 1 week for PM check and with Dr. Bob in 2 weeks. - Time spent with patient Time with patient DS: Greater than 30 minutes Diagnosis - Discharge Diagnosis (1) Tachy-sharmaine syndrome Status: Resolved (2) Near syncope Status: Resolved (3) Cholestasis Status: Acute (4) Leukocytosis Status: Acute (5) CAD (coronary artery disease) Status: Chronic (6) Nausea Status: Acute (7) Carotid bruit Status: Chronic (8) Dyslipidemia Status: Chronic (9) Essential hypertension Status: Chronic (10) Murmur, cardiac Status: Chronic Specialty Discharge - Follow Up or Referrals Follow up with: Eliazar Yanez MD [Physician] - 10/19/16 10:15 am (Follow up in [address] Yanez for PM check. ) Rigoberto Courtney MD [Physician] - 11/13/16 9:30 am Nolan Bob MD [Physician] - 10/26/16 2:10 pm (Follow up with Dr. Bob in 2 weeks. ) Red Wood DO [Physician] - 10/20/16 3:15 pm (Follow up with Dr. Wood in 1-2 weeks to discuss results of thyroid ultrasound and evaluate elevated WBC. Patient will need to have thyroid ultrasound prior to follow up with Dr. Wood. OUTPATIENT THYROID US WILL BE ON 10/18/16 AT 1:30 AT [facility] ) Discharge Plan - Discharge Data Disposition: Disch To Home/Self Care Condition at Discharge: Stable Discharge Diet: heart healthy Activity: other (Do not raise left arm above chest level until after follow up with Dr. Yanez. Keep arm immobilizer on. ) Hygiene: may shower Weight Bearing at Discharge: full weight bearing Contact your physician if you experience:: fever over 101, Difficulty voiding, Redness or swelling, Nausea/Vomiting, Shortness of breath, Bleeding, pain uncontrolled by pain medications - Discharge Medications New Carvedilol [Coreg] 25 mg PO BID #60 tablet Diltiazem Cd Cap [Cardizem CD] 240 mg PO DAILY #30 capsule Pantoprazole Tab [Protonix Tab] 40 mg PO BID #60 tablet Aspirin EC Tab 81 mg PO DAILY #30 tablet Ursodiol [Actigall] 300 mg PO BID capsule Continue Atorvastatin [Lipitor] 40 mg PO BEDTIME #30 tablet Nitroglycerin Sl Tab [Nitrostat] 0.4 mg SL Q5M PRN #1 bottle PRN Reason: Chest Pain Clopidogrel [Plavix] 75 mg PO DAILY #30 tablet Discontinued amLODIPine [Norvasc] 10 mg PO DAILY Aspirin Tab 325 mg PO DAILY #30 tablet Carvedilol [Carvedilol] 6.25 mg PO BID - Follow Up or Referral Follow Up: Eliazar Yanez MD [Physician] - 10/19/16 10:15 am (Follow up in [address] Yanez for PM check. ) Rigoberto Courtney MD [Physician] - 11/13/16 9:30 am Nolan Bob MD [Physician] - 10/26/16 2:10 pm (Follow up with Dr. Bob in 2 weeks. ) Red Wood DO [Physician] - 10/20/16 3:15 pm (Follow up with Dr. Wood in 1-2 weeks to discuss results of thyroid ultrasound and evaluate elevated WBC. Patient will need to have thyroid ultrasound prior to follow up with Dr. Wood. OUTPATIENT THYROID US WILL BE ON 10/18/16 AT 1:30 AT [facility] ) - Forms/Instructions Instructions: Pacemaker (DC) Exam - Constitutional Vitals: Period Temp Pulse Resp BP Sys/Proctor Pulse Ox Last 24 Hr 96.9 F-99.0 F 60-606 16-20 118-158/54-82 92-96 Exam: General appearance: normal weight, no acute distress - Head Head exam: Present: normal inspection, atraumatic - Eye Eye exam: Absent: conjunctival injection, no scleral icterus Pupils: Absent: dilated - ENT ENT exam: Present: normal external ear exam - Neck Neck exam: Present: normal inspection, no tenderness - Respiratory Respiratory exam: Present: clear to auscultation bilaterally, no rales, rhonchi , wheezes - Cardiovascular Cardiovascular exam: Present: regular rate and rhythm, systolic murmur - GI/Abdominal GI/Abdominal exam: Present: normal bowel sounds, soft, non-tender - Extremities Exam Extremities exam: Present: normal inspection, normal capillary refill, peripheral pulses present and palpable. Absent: edema - Back Exam Back exam: Present: normal inspection, no vertebral tenderness - Neurological Exam Neurological exam: Present: alert, oriented X3, grossly intact, no resting or essential tremor - Psychiatric Psychiatric exam: Present: normal affect, normal mood - Skin Skin exam: Present: normal color, warm, other (no PM hematoma). Absent: cyanosis Discharge Results Procedures and tests throughout hospitalization: Pacemaker Implantation 10/11/16: Implants Device: Medtronic Advisa DDD PM, SN: [id number], location: left infraclavicular Right ventricular lead: Medtronic 5076-58, SN: [id number], location: RV septum Right atrial lead: Medtronic 5076-52, SN: [id number], location: RA appendage The implanted system is MRI conditional. Explanted ILR: Medtronic LinQ SN: [id number] Measurements RV bipolar: threshold 1.4V @ 0.5 ms, R 6.2 mV, impedance 1380 Ohm RA bipolar: threshold 0.5V @ 0.5 ms, P 2.2 mV, impedance 663 Ohm Settings MVPR 60/130 Mode switch on Labs on day of discharge: Labs from last 24 hours 10/12/16 10/12/16 03:51 03:51 WBC 16.6 H RBC 4.75 Hgb 14.7 Hct 45.9 MCV 96.6 MCH 31 MCHC 32.0 RDW 14.0 Plt Count 331 MPV 11.8 Neut % (Auto) 74.2 H Lymph % (Auto) 17.8 L [place] % (Auto) 3.5 Eos % (Auto) 3.2 Baso % (Auto) 0.8 Neut # (Auto) 12.3 H Lymph # (Auto) 3.0 [place] # (Auto) 0.6 Eos # (Auto) 0.5 Baso # (Auto) 0.1 Immature Gran % 0.5 Nucleated RBC % 0.0 Immature Gran # 0.08 Nucleated RBCs # 0.00 Sodium 145 Potassium 3.9 Chloride 105 Carbon Dioxide 27 Anion Gap 16.9 H BUN 8 Creatinine 0.60 GFR Calculation 84 BUN/Creatinine Ratio 13.00 Glucose 92 Calculated Osmolality 285.7 Calcium 8.7 Magnesium 2.3 DS: Provider Date of admission: 10/06/16 11:23 Primary care physician: Adonis Saeed MD Attending physician on admission: Adonis Saeed MD Consults: 10/06/16 14:15 Consult to Physician [CONS] Routine Comment: as we discussed. Consulting Provider: Kenyon Tripp 10/10/16 09:39 Consult to Physician [CONS] Routine Comment: Consulting Provider: Eliazar Yanez Person Notified: SHADY Date Notified: 10/10/16 Time Notified: 09:45 10/10/16 14:30 Consult to Physician [CONS] Routine Comment: biliary dyskinesia, Consulting Provider: Rigoberto Courtney Consult to Specialist Group: Surgery Person Notified: NOLAN Date Notified: 10/10/16 Time Notified: 14:40 10/11/16 09:30 Consult to Pharmacy [CONS] Routine Reason for Pharmacy Consult: Adjust Meds Renal Funct Discharging clinician: NITIN Harrington Expected date of discharge: 10/12/16 <Qasim Marie - Last Filed: 10/12/16 11:19> Hospital Course - Hospital Course Hospital Course: Cardiology addendum Patient examined and chart reviewed. Pacemaker site is clean and dry. Pacemaker follow-up with Dr. Garcia as scheduled. Office visit with Dr. Bob in 2 weeks
--- NOTE | 2016-10-12 12:22 | Pathology Report from [facility] ---
ACCESSION # : [id number] PATIENT NAME : Raul Aquino ORDERING DR : AUGIE BARROSO MD CLINICAL HX: Link removal POST-OP DX: Same SPECIMEN INFO: Link removal Serial #[id number]. GROSS DESCRIPTION: The specimen is received fresh labeled with the patient's name Raul Aquino consists of a Link device serial #[id number]. Submitted for gross exam only. DIAGNOSIS FOR RAUL AQUINO: Link device, GROSS ONLY. SERVICE DATE: 10/11/2016 REPORT DATE: 10/12/2016 PATHOLOGIST: Alina Wisdom
== END 2016-10-12 12:34 | disposition home or self-care (01) | DRG 242 ==
LOC: N.TELES → N.CC 10-06 02:52 → N.TELES 10-09 12:27
PROVIDERS: ADMIT Internal Medicine Interventional Cardiology; ATTEND Internal Medicine Interventional Cardiology